=== PATIENT | female | born 1970 | race Caucasian/White ===

== ENCOUNTER 2020-12-10 10:36 | Outpatient (CLI) | payer OTHER, SELFPAY ==
--- NOTE | ~2020-12-10 | MR_ITS ---
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 Strong family history. TECHNIQUE: MRI of the breasts perform using standard protocol pre-and post IV contrast with the follo wing sequences: Axial T2 STIR, axial T1, axial vibrant T1 with fat suppression precontrast and multip hasic postcontrast. COMPARISON: No prior studies for comparison. FINDINGS: RIGHT BREAST: There are no abnormalities on the precontrast sequences. There is mild background paren chymal enhancement. No enhancing lesions following contrast administration. There are clumped segmen alvin nonmass-like enhancement in the lower outer quadrant of the right breast. In the lower outer quad rant of the right breast at 7:00 there is an 8 x 4 x 1.3 cm mass with rapid washout enhancement and c entral fat, most likely benign intramammary lymph node.. There are enlarged right axillary lymph node s some of which appear to have lost normal fatty hilum. The largest lymph node measures 2.6 cm maximu m dimension. LEFT BREAST: No signal abnormalities on precontrast sequences. There is minimal, mild, moderate, mar ked background parenchymal enhancement. There is linear nonmass-like enhancement in the lower central aspect of the left breast. There are multiple left axillary lymph nodes which are increased in numbe r although not definitely size. IMPRESSION: 1: Right breast: Clumped segmental nonmass-like enhancement lower outer quadrant of the right breast . Adjacent 1.3 cm mass at 7:00, most likely benign lymph node. Enlarged right axillary lymph nodes me asuring up to 2.6 cm. 2: Left breast: Linear nonmass-like enhancement inferior aspect of the left breast. Pathologically i ncreased number of left axillary lymph nodes. BI-RADS CATEGORY 0 - INCOMPLETE STUDY, NEED ADDITIONAL IMAGING EVALUATION. RECOMMENDATION: Correlation with diagnostic bilateral mammogram and breast ultrasound recommended. Reviewed, dictated and finalized at location A. IMPRESSION: 1: Right breast: Clumped segmental nonmass-like enhancement lower outer quadra nt of the right breast. Adjacent 1.3 cm mass at 7:00, most likely benign lymph node. Enlarged right axillary lymph nodes measuring up to 2.6 cm. 2: Left breast: Linear nonmass-like enhancement inferior aspect of the left br east. Pathologically increased number of left axillary lymph nodes. BI-RADS CATEGORY 0 - INCOMPLETE STUDY, NEED ADDITIONAL IMAGING EVALUATION. RECOMMENDATION: Correlation with diagnostic bilateral mammogram and breast ultr asound recommended.
[2020-12-10 11:08] LABS: Estimated Glomerular Filt Rate > 60
== END 2020-12-10 10:37 | disposition home or self-care (01) ==
PROVIDERS: PCP Internal Medicine
DX: Z15.01 Genetic susceptibility to malignant neoplasm of breast (principal); Z80.3 Family history of malignant neoplasm of breast; R92.2 Inconclusive mammogram
CPT/HCPCS: 77049; A9577; C8908

== ENCOUNTER 2020-12-13 13:53 | Outpatient (CLI) | payer OTHER, SELFPAY ==
[2020-12-13 16:40] LABS: Hematocrit 39.9 % (35.0-49.0); Mean Corpuscular HGB Conc 32.6 g/dL (32.0-36.0); Mean Corpuscular Hemoglobin 29.6 pg (27.0-31.0); Mean Corpuscular Volume 90.9 fL (78.0-102.0); Mean Platelet Volume 9.3 fl (9.2-11.8); Platelet Count Result 325 K/mm3 (150-420); Red Blood Count 4.39 M/mm3 (4.20-5.40); Red Cell Distribution Width 12.5 % (11.6-14.4)
[2020-12-13 16:50] LABS: Monoscreen Negative (Negative); Negative Monotest Control Negative (Negative); Positive Monotest Control Positive (Positive)
[2020-12-13 17:03] LABS: Band Neutrophils Percent 0 % (0-6); Basophils Percent Manual 0 % (0-1); Eosinophils Absolute Manual 0.56 K/mm3 (0.02-0.5); Eosinophils Percent Manual 4 % (1-6); Lymphocytes Absolute Manual 3.78 K/mm3 (1.1-4.5); Lymphocytes Percent Manual 27 % (18-44); Monocytes Absolute Manual 1.26 K/mm3 (0.1-0.90); Monocytes Percent Manual 9 % (3-9); Neutrophils Percent Manual 60 % (46-73); Total Cells Counted 100
[2020-12-13 17:04] LABS: Atypical Lymphocytes Present; Platelet Estimate Adequate (Adequate)
[2020-12-13 17:16] LABS: Alanine Aminotransferase 22 U/L (14-59); Albumin Level 3.5 g/dL (3.4-5.0); Alkaline Phosphatase 85 U/L (46-116); Anion Gap 8 mmol/L (8-16); Aspartate Amino Transferase 15 U/L (15-37); Bilirubin,Total 0.4 mg/dL (0.00-1.00); Blood Urea Nitrogen 13 mg/dL (7-18); Calcium 9.2 mg/dL (8.5-10.1); Carbon Dioxide 31 mmol/L (21-32); Chloride 100 mmol/L (98-108); Estimated Glomerular Filt Rate > 60; Glucose 104 mg/dL (70-99); Osmolality Calculated 288 mOsm/kg (285-295); Potassium 4.1 mmol/L (3.5-5.1); SARS-CoV-2 RNA PCR Negative (Negative); Sodium 139 mmol/L (136-145); Total Protein 7.5 g/dL (6.4-8.2)
[2020-12-16 20:40] LABS: EBV Nuclear Ab Interpretation Past; EBV Virus Capsid Ag IgM Ab <36.00 U/mL (<36.00)
== END 2020-12-13 13:54 | disposition home or self-care (01) ==
PROVIDERS: PCP Internal Medicine; Visit Provider Nurse Practitioner Family
DX: J02.9 Acute pharyngitis, unspecified (principal); R50.9 Fever, unspecified; R22.1 Localized swelling, mass and lump, neck; Z20.822 Contact with and (suspected) exposure to COVID-19
CPT/HCPCS: 80053; 85025; 86308; 86664; 86665; 87880; C9803; U0003; U0005

== ENCOUNTER 2021-01-25 13:56 | Outpatient (CLI) | payer OTHER, SELFPAY ==
--- NOTE | ~2021-01-25 | MM_ITS ---
EXAMINATION: MM diagnostic dinora BI w bethel HISTORY: Genetic susceptibility to cancer TECHNIQUE: ML, MLO and craniocaudal 3-D tomosynthesis images of both breasts were performed and synth etic 2-D images were generated. Magnification views of right breast. CAD analysis was submitted and i nterpreted. COMPARISON: 12/10/2020 MR breast examination: (Right breast MR findings: Clumped segmental nonmass-like enhancement was noted in the lower outer quadrant of the right breast. Lower outer quadrant1.3 cm mass at 7:00, reported as most likely a benign lymph node Right axillary 2.6 cm lymph node Left breast MR findings: Linear nonmass-like enhancement inferior aspect of left breast Pathologically increased number of left axillary lymph nodes) FINDINGS: No suspicious mass, sebaceous calcification, architectural distortion, skin thickening or r etraction of either breast is evident. Considering the genetic susceptibility issue, the heterogeneously dense stroma which may obscure mass es and the MR breast findings, bilateral complete ultrasound examination was performed. IMPRESSION: 1. Incomplete examination 2. Bilateral complete breast ultrasound examination is recommended. BI-RADS Category 0: Incomplete: Needs additional imaging evaluation. Reviewed, dictated and finalized at location A.
== END 2021-01-25 13:57 | disposition home or self-care (01) ==
LOC: ANHIMG 14:02
PROVIDERS: PCP Internal Medicine
DX: R92.8 Other abnormal and inconclusive findings on diagnostic imaging of breast (principal)
CPT/HCPCS: 77062; 77066; G0279

== ENCOUNTER 2021-01-27 14:21 | Outpatient (CLI) | payer OTHER, SELFPAY ==
--- NOTE | ~2021-01-27 | US_ITS ---
US breast BI complete DATE: 01/27/2021 15:16 INDICATION: Genetic susceptibility to breast cancer. 12/10/2020 MRI breast findings. 01/25/2021 diagnostic mammogram showing heterogeneously dense mammographic stroma, which may obscure m asses TECHNIQUE: Complete bilateral breast ultrasound examination was performed. COMPARISON: 01/25/2021 bilateral diagnostic mammogram 12/10/2020 MRI breast examination FINDINGS: Right breast: 12:00 4 cm from nipple: 2.8 x 5.2 mm septated cyst or clustered cysts, with through transmission, latoya ign 11:00 5 cm from nipple: 3.9 mm cyst with through transmission and posterior enhancement, benign 9:00 7 cm from nipple: Parallel circumscribed 1.5 x 2.8 x 5.3 mm lesion without internal vascularity or suspicious shadowing, benign Prominent subareolar ducts Right axillary lymph nodes are noted, with relatively uniform cortex thickness and homogeneous echote xture, measuring up to 6 x 14 mm. Left breast: 12:00 4 cm from nipple: 3 x 4 mm parallel circumscribed hypoechoic lesion with through transmission, benign in appearance 12:00 2 cm from nipple: 3.2 x 3.7 x 4.5 mm parallel circumscribed hypoechoic lesion with through tony smission, benign in appearance 3:00 5 cm from nipple: Adjacent 3 mm and 3.5 mm hypoechoic lesions without internal vascularity or chacko spicious shadowing 6:00 5 cm from nipple: 3.1 x 3.4 mm hypoechoic lesion with through transmission posterior enhancement , benign in appearance Mild prominence of subareolar ducts Multiple left axillary lymph nodes, measuring up to 7.5 x 20 mm maximal dimension IMPRESSION: BI-RADS Category 2: Benign findings Recommendation: Routine mammographic screening and any additional MR and ultrasound monitoring as pao ropriate given the patient's history of genetic susceptibility Reviewed, dictated and finalized at Location A. Reviewed, dictated and finalized at location A. IMPRESSION: BI-RADS Category 2: Benign findings Recommendation: Routine mammographic screening and any additional MR and ultras ound monitoring as appropriate given the patient's history of genetic susceptib ility
== END 2021-01-27 14:22 | disposition home or self-care (01) ==
LOC: CHSIMG 14:27
PROVIDERS: PCP Internal Medicine
DX: R92.8 Other abnormal and inconclusive findings on diagnostic imaging of breast (principal)
CPT/HCPCS: 76641

== ENCOUNTER 2021-12-20 11:46 | Outpatient (CLI) | payer OTHER, SELFPAY ==
--- NOTE | ~2021-12-20 | MMUS_ITS ---
EXAMINATION: MM diagnostic dinora RT w bethel, US breast RT limited HISTORY: Palpable lump at the 6:00 location of the right breast. TECHNIQUE: Craniocaudal, mediolateral, and mediolateral oblique 3-D tomosynthesis images of the right breast were performed and synthetic 2-D images were generated. CAD analysis was submitted and interp reted. High resolution limited right breast ultrasound was performed. COMPARISON: 01/25/2021 BREAST PARENCHYMAL COMPOSITION: The breasts are heterogeneously dense, which may obscure small masses . FINDINGS: MAMMOGRAPHIC FINDINGS: There is no suspicious mass, calcification, or architectural distortion to suggest malignancy. There has been no suspicious interval change. No mammographic correlate is identified for the reported pal pable abnormality of concern. ULTRASOUND: There is no evidence of focal abnormal solid or cystic mass in the vicinity of the reported palpable abnormality of concern. IMPRESSION: 1. No specific mammographic or sonographic correlate is identified for the reported palpable abnormal ity of concern. Further evaluation at this time should be based on clinical assessment. Continued fol low-up physical examination is recommended. 2. Recommend routine screening mammography. Of note, the left breast is due for screening next month. BI-RADS Category 1: Negative Reviewed, dictated and finalized at location A. IMPRESSION: 1. No specific mammographic or sonographic correlate is identified for the repo rted palpable abnormality of concern. Further evaluation at this time should be based on clinical assessment. Continued follow-up physical examination is martha mmended. 2. Recommend routine screening mammography. Of note, the left breast is due for screening next month. BI-RADS Category 1: Negative
== END 2021-12-20 11:47 | disposition home or self-care (01) ==
PROVIDERS: PCP Internal Medicine
DX: N63.10 Unspecified lump in the right breast, unspecified quadrant (principal)
CPT/HCPCS: 76642; 77061; 77065; G0279

== ENCOUNTER 2022-03-22 09:26 | Outpatient (CLI) | payer OTHER, SELFPAY ==
--- NOTE | ~2022-03-22 | MM_ITS ---
EXAMINATION: MM screening dinora BI w bethel HISTORY: Screening mammogram TECHNIQUE: Craniocaudal and mediolateral oblique 3-D tomosynthesis images were obtained and synthetic 2-D images were generated. CAD analysis was submitted and interpreted. COMPARISON: 12/20/2021 diagnostic right mammogram and limited right breast ultrasound 01/23/2021 bilateral complete breast ultrasound examination 01/25/2021 bilateral diagnostic mammography 12/10/2020 MRI breast examination BREAST PARENCHYMAL COMPOSITION: The breasts are heterogeneously dense, which may obscure small masses . FINDINGS: Small chronic cluster of benign-appearing grouped microcalcifications in the upper central right breast. There is no evidence of suspicious mass, calcification, or architectural distortion to suggest malignancy in either breast. There has been no suspicious interval change. IMPRESSION: 1. No mammographic evidence of malignancy. 2. Recommend routine screening mammography in one year. BI-RADS Category 2: Benign finding(s). Reviewed, dictated and finalized at location A.
== END 2022-03-22 09:27 | disposition home or self-care (01) ==
PROVIDERS: PCP Internal Medicine
DX: Z12.31 Encounter for screening mammogram for malignant neoplasm of breast (principal)
CPT/HCPCS: 77063; 77067

== ENCOUNTER 2022-10-30 13:59 | Outpatient (CLI) | payer OTHER, SELFPAY ==
[2022-10-30 14:41] LABS: Strep Group A RT-PCR DETECTED (Negative)
== END 2022-10-30 14:00 | disposition home or self-care (01) ==
PROVIDERS: PCP Internal Medicine; Visit Provider Internal Medicine
DX: J02.0 Streptococcal pharyngitis (principal)
CPT/HCPCS: 87651

== ENCOUNTER 2022-11-02 08:39 | Outpatient (CLI) | payer OTHER, SELFPAY ==
--- NOTE | ~2022-11-02 | MR_ITS ---
MR breast BI wo/w con 11/03/2022 10:23 CDT INDICATION: Family history of breast cancer. TECHNIQUE: MRI of the breasts perform using standard protocol pre-and post IV contrast with the follo wing sequences: Axial T2 STIR, axial T1, axial vibrant T1 with fat suppression precontrast and multip hasic postcontrast. 11 cc IV MultiHance administered. COMPARISON: MRI breast dated 12/10/2020 as well as mammograms and ultrasounds dating back to 1 FINDINGS: There are no abnormalities on the precontrast sequences. There is marked background parench ymal enhancement and a diffuse stippled appearance.. No enhancing lesions following contrast adminis tration. No areas of enhancement meeting threshold criteria on CAD analysis. No evidence of signal abnormalities in the axillary or internal mammary node distributions. LEFT BREAST: No signal abnormalities on precontrast sequences. There is marked background parenchyma l enhancement and a diffuse stippled appearance. No enhancing lesions following contrast administrat ion. No areas of enhancement meeting threshold criteria on CAD analysis. No evidence of signal abn ormalities in the axillary or internal mammary node distributions.] IMPRESSION: 1: Right breast: Negative. No evidence of malignancy. BI-RADS category 1. Recommend annual mammo graphy follow-up. 2: Left breast: Negative. No evidence of malignancy. BI-RADS category 1. Recommend annual mammogr aphy follow-up. Follow-up MRI may be useful for supplementing mammographic evaluation as clinically indicated. Reviewed, dictated and finalized at location A. IMPRESSION: 1: Right breast: Negative. No evidence of malignancy. BI-RADS category 1. Recommend annual mammography follow-up. 2: Left breast: Negative. No evidence of malignancy. BI-RADS category 1. Re commend annual mammography follow-up. Follow-up MRI may be useful for supplementing mammographic evaluation as clinic ally indicated.
== END 2022-11-02 08:40 | disposition home or self-care (01) ==
PROVIDERS: PCP Internal Medicine
DX: Z80.3 Family history of malignant neoplasm of breast (principal)
CPT/HCPCS: 77049; A9577; C8908

== ENCOUNTER 2023-06-27 16:38 | Outpatient (CLI) | payer OTHER, SELFPAY ==
--- NOTE | ~2023-06-27 | MM_ITS ---
EXAMINATION: MM screening dinora BI w bethel HISTORY: Screening mammogram TECHNIQUE: Craniocaudal and mediolateral oblique 3-D tomosynthesis images were obtained and synthetic 2-D images were generated. CAD analysis was submitted and interpreted. COMPARISON: 11/02/2022 MR breast, reported negative 03/22/2022 bilateral screening mammogram 12/20/2021 diagnostic right mammogram and limited right breast ultrasound 01/23/2021 bilateral complete breast ultrasound examination 01/25/2021 bilateral diagnostic mammogram BREAST PARENCHYMAL COMPOSITION: The breasts are heterogeneously dense, which may obscure small masses . FINDINGS: There is asymmetry in the mid to posterior lower left breast MLO view. Diagnostic left mamm ogram is recommended, with ultrasound if required. Otherwise no suspicious mass, architectural distortion, malignant calcification, skin thickening or r etraction or significant change of either breast is detected. IMPRESSION: 1. Left mammographic asymmetry 2. Diagnostic left mammogram is recommended, with ultrasound if required BI-RADS Category 0: Incomplete: Needs additional imaging evaluation. Reviewed, dictated and finalized at location A. 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
== END 2023-06-27 16:39 | disposition home or self-care (01) ==
LOC: ANHIMG 16:50
PROVIDERS: PCP Internal Medicine
DX: Z12.31 Encounter for screening mammogram for malignant neoplasm of breast (principal); R92.8 Other abnormal and inconclusive findings on diagnostic imaging of breast
CPT/HCPCS: 77063; 77067

== ENCOUNTER 2023-07-23 12:16 | Outpatient (CLI) | payer OTHER, SELFPAY ==
--- NOTE | ~2023-07-23 | MMUS_ITS ---
EXAMINATION: MM diagnostic dinora LT w bethel, US breast LT limited HISTORY: Mammographic asymmetry in the mid to posterior lower left breast on screening MLO view of TECHNIQUE: Additional 3-D tomosynthesis images of left breast were performed and synthetic 2-D images were generated. CAD analysis was submitted and interpreted. High resolution lower outer quadrant lef t breast ultrasound was performed. COMPARISON: 06/27/2020 bilateral screening mammogram FINDINGS: MAMMOGRAPHIC FINDINGS: No reproducible mass or architectural distortion, malignant calcification, skin thickening or retract ion is detected. ULTRASOUND: No suspicious mass or shadowing. No other significant sonographic abnormality of the lower outer quad rant of the left breast is noted. IMPRESSION: 1. No mammographic or sonographic evidence of malignancy 2. Routine annual mammographic screening is recommended. BI-RADS Category 1: Negative Reviewed, dictated and finalized at location A. 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 No mammographic or sonographic evidence of malignancy 2. Routine annual mammographic screening is recommended. BI-RADS Category 1: Negative
== END 2023-07-23 12:17 | disposition home or self-care (01) ==
LOC: ANHIMG 12:18
PROVIDERS: PCP Internal Medicine
DX: R92.8 Other abnormal and inconclusive findings on diagnostic imaging of breast (principal)
CPT/HCPCS: 76642; 77061; 77065; G0279

== ENCOUNTER 2023-08-13 03:03 | Day surgery (SDC) | payer OTHER, SELFPAY ==
[2023-07-16 14:47] VITALS: BMI 22.6
--- NOTE | 2023-08-10 10:11 | SUR.PREOP ---
Patient called regarding upcoming procedure. Reviewed preop instructions, appointment times, and procedure prep.
[2023-08-13 09:13] VITALS: BP 130/87; PULSE 106; RESP 18; TEMP 36.1; O2SAT 100
[2023-08-13] MEDS: LACTATED RINGERS 1,000 ML 150 ML IV CONT (09:27)
--- NOTE | 2023-08-13 09:35 | WPDANESEPPF ---
Anes - Initial Pre Proc Eval Procedure: Operation Date: 08/13/23 10:00 Proposed Procedures p Screening Colonoscopy - Patric Douglass MD Date/Time: 08/13/23 09:35 Surgeon: Patric Douglass MD Pre Op Diagnosis: neoplasm screening Patient Data Age: 52 Gender: F Height: 1.63 m Weight: 59.5 kg Last Vital Signs Temp 97 F L 08/13/23 09:13 Pulse 106 H 08/13/23 09:13 Resp 18 08/13/23 09:13 BP 130/87 08/13/23 09:13 Pulse Ox 100 08/13/23 09:13 O2 Del Method Room Air 08/13/23 09:13 Allergies Allergy/AdvReac Type Severity Reaction Status Date / Time No Known Allergies Allergy Unknown Verified 08/13/23 09:12 Home Medications Medication Instructions Recorded Confirmed Type rosuvastatin 5 mg tablet 5 mg PO DAILY 07/16/23 08/13/23 History Patient hx anesthesia problems: none Family hx anesthesia problems: none Results Review: All pre-operative results and documents have been reviewed as part of the pre-operative evaluation. [facility] Social History Social History Substance use type: does not use Anes - Eval Final PreProcedure Day of Procedure 08/13/23 09:35 Patient weight: normal Heart: regular rate and rhythm Lungs: clear to auscultation Airway: Mallampati scale class II Neurological: alert and oriented Last oral intake: >/= 8 hours ASA classification: II Emergent: no Anesthetic plan: proceed Anesthesia type and monitoring: general GIVS and standard monitoring Results Review: All pre-operative results and documents have been reviewed as part of the pre-operative evaluation. Informed Consent: The patient's anesthetic plan and its attendant risks and benefits were discussed with the patient/family/POA. Questions were solicited and answers provided to the satisfaction of the patient/family/POA.
--- NOTE | 2023-08-13 09:55 | PM.HPGS ---
History of Present Illness History of Present Illness Consent: Risks, benefits, and alternatives have been discussed and questions answered. Patient agrees to proceed with procedure. Chief complaint: neoplasm screening Narrative: Clementina Phelan is a 52 year old female here for first screening colonoscopy Review of Systems Constitutional: Constitutional: Denies headache(s) and Denies weakness Eyes: Eyes: Denies blurry vision ENT: Reports Normal hearing present, Denies headache(s) and Denies neck pain Cardiovascular: Cardiovascular: Denies chest pain and Denies dyspnea Respiratory: Respiratory: Denies dyspnea Gastrointestinal: Gastrointestinal: Reports no additional gastrointestinal complaints Genitourinary: Genitourinary: Denies dysuria Musculoskeletal: Musculoskeletal: Denies neck pain Integumentary/Breasts: Skin/Breast: Denies dry skin Neurologic: Reports Normal hearing present, Denies headache(s) and Denies weakness Psychiatric: Psychiatric: Denies anxiety Endocrine: Endocrine: Denies change in body appearance Hematologic/Lymphatic: Hematologic/Lymphatic: Denies easy bleeding Allergic/Immunologic: Allergic/Immunologic: Denies urticaria PMFSH Past Medical History Medical History (Updated 08/13/23 @ 09:56 by Patric Douglass MD) Colon cancer screening Social History Social History Substance use type: does not use Meds Home Medications and Allergies Home Medications Medication Instructions Recorded Confirmed Type rosuvastatin 5 mg tablet 5 mg PO DAILY 07/16/23 08/13/23 History Allergies Allergy/AdvReac Type Severity Reaction Status Date / Time No Known Allergies Allergy Unknown Verified 08/13/23 09:12 Vital Signs Vital Signs - 24 hr 08/13/23 09:13 Temperature 97 F L Pulse Rate 106 H Respiratory Rate 18 Blood Pressure 130/87 Pulse Oximetry 100 Oxygen Delivery Room Air Exam Const: General: comfortable and no acute distress HENMT: Face/Nose/Sinus: Normal nares present Eyes: General: appearance normal, both eyes and all related structures Neck: Neck: no JVD Resp: Auscultation: clear to auscultation bilaterally Cardio: Rate: regular rate Rhythm: regular rhythm GI: Inspection: non-distended GI Palp: Yes Soft to palpation Skin: General skin exam: normal color Neuro: General: gait normal Speech: normal speech Extrem: General: normal to inspection Psych: Mental Status: mental status grossly normal Assessment and Plan Assessment and plan (1) Colon cancer screening: Code(s): Z12.11 - Encounter for screening for malignant neoplasm of colon Status: Acute Assessment and Plan: colonoscopy
[2023-08-13 10:15] VITALS: BP 104/65; PULSE 73; RESP 18; O2SAT 99
[2023-08-13 10:25] VITALS: BP 123/82; PULSE 77; RESP 18; O2SAT 100
[2023-08-13 10:35] VITALS: BP 119/80; PULSE 81; RESP 18; O2SAT 100
== END 2023-08-13 10:45 | disposition home or self-care (01) ==
PROVIDERS: PCP Internal Medicine; Visit Provider Internal Medicine Gastroenterology
PROC: 0DJD8ZZ Inspection of Lower Intestinal Tract, Via Natural or Artificial Opening Endoscopic (ICD-10-PCS; CPT 45378; principal; 2023-08-13 10:00)
DX: Z12.11 Encounter for screening for malignant neoplasm of colon (principal); D12.2 Benign neoplasm of ascending colon; D12.5 Benign neoplasm of sigmoid colon; K64.8 Other hemorrhoids; K57.30 Diverticulosis of large intestine without perforation or abscess without bleeding
CPT/HCPCS: 45385; 88305; J2704; J7120

== ENCOUNTER 2024-02-08 09:53 | Outpatient (CLI) | payer OTHER, SELFPAY ==
--- NOTE | ~2024-02-08 | MR_ITS ---
EXAMINATION: MR breast BI wo/w con INDICATION: High-risk using, genetic susceptibility of cancer TECHNIQUE: Axial VIBRANT pre and dynamic post contrast, Sagittal VIBRANT post contrast, Axial T2 STIR ASSET COMPARISON: 11/02/2022 CONTRAST: Multihance, 12 cc BREAST COMPOSITION: Extremely dense fibroglandular tissue FINDINGS: RIGHT BREAST: There is marked background parenchymal enhancement. No abnormal enhancement is present after contrast administration. No pathologically enlarged axillary or internal mammary lymph nodes ar e identified. LEFT BREAST: There is marked background parenchymal enhancement. No abnormal enhancement is present a fter contrast administration. No pathologically enlarged axillary or internal mammary lymph nodes are identified. IMPRESSION: No evidence for malignancy. BI-RADS Category 1: Negative Reviewed, dictated and finalized at location .
== END 2024-02-08 09:54 | disposition home or self-care (01) ==
PROVIDERS: PCP Internal Medicine
DX: Z15.01 Genetic susceptibility to malignant neoplasm of breast (principal)
CPT/HCPCS: 77049; A9577; C8908

== ENCOUNTER 2024-09-11 07:46 | Outpatient (CLI) | payer OTHER, SELFPAY ==
--- NOTE | ~2024-09-11 | MM_ITS ---
EXAMINATION: MM screening din[facility] BI w [facility] HISTORY: Screening TECHNIQUE: Craniocaudal and mediolateral oblique 3-D tomosynthesis images were obtained and synthetic 2-D images were generated. CAD analysis was submitted and interpreted. COMPARISON: Comparison to multiple prior studies sequentially, with oldest reviewed study dated 01/25. BREAST PARENCHYMAL COMPOSITION: Dense: The breasts are heterogeneously dense, which may obscure small masses FINDINGS: There is no evidence of suspicious mass, calcification, or architectural distortion to sugg est malignancy in either breast. There has been no suspicious interval change. IMPRESSION: 1. No mammographic evidence of malignancy. 2. Recommend routine screening mammography in one year. BI-RADS Category 1: Negative Reviewed, dictated and finalized at location B. [facility] HEL[facility]
--- OUTSIDE RECORDS SUMMARY | 2024-09-11 07:57 | XMS_ITS | Data Portability ---
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 Plan of Treatment Reminders Order Date Submit Date Provider Last Modified By Organization Details Last Modified Time Details Appointments None recorded. Lab None recorded. Referral None recorded. Procedures None recorded. Surgeries septoplast y (SURG) 2016 017 [facility] (Pat), [address] [place], [address], 7 15:46:54 Imaging tympanogra m 2018 019 [email or web address] In-House Results, For Internal Use Only, Do Not Delete/merge, [id number] 9 15:51:37 Medication Orders None recorded. Patient TargetsNo targets recorded. Patient Instructions Encounter Date Encounter Id Patient Instructions Last Modified By Organization Details Last Modified Time 08/15/2016 [id number] DISCUSSED SEPTOPLASTY--2 DAYS OF PACKING; DISCUSSED RISKS--BLEEDING; INFECTION; SEPTAL PERF; CHANGE IN SENSE OF SMELL; MAY NOT WORK TOTALLY FOR BREATHING; NO LIFTING OR BENDING X 10 DAYS AND WILL HAVE TO FOLLOW UP FOR NEXT SEVERAL MONTHS. DISCUSSED T&A WOULD HELP WITH THE SLEEP APNEA. PT WANTS TO HOLD ON THE T&A FOR NOW. MORTALITY AND MORBIDITY DISCUSSED IN FULL. josr Not available 08/30/2016 10:41:07 09/08/2016 [id number] KEEP NOSE WET WITH SALINE NASAL SPRAY. josr Not available 09/08/2016 12:00:15 NASAL HYGIENE DISCUSSED. NO LIFTING OR BENDING X 10 DAYS. INSTRUCTED HOW TO BLOW THE NOSE. DO NOT GO UP INTO NOSE. USE AFRIN X 3 DAYS ONLY. USE SALINE NASAL SPRAY FREQUENTLY. josr Not available 09/08/2016 11:59:55 09/22/2016 [id number] STOP THE AFRIN-WAS ONLY SUPPOSE TO BE USED FOR 3 DAYS ONLY . USE SALINE NASAL SPRAY BUT DO NOT PUT NOZZLE IN NOSE. NASAL HYGIENE DISCUSSED. RETURN IN 2 WEEKS. CONSIDER T&A IN THE FUTURE. josr Not available 09/22/2016 10:53:15 10/09/2016 [id number] Observe the tonsils for now call if she when she is ready to schedule surgery [email or web address] Not available 10/09/2016 12:40:06 discussed the nasal hygiene, discussed breathing throught the nose one side is a little tighter, discussed T&A observe for now [email or web address] Not available 10/09/2016 12:39:39 01/21/2019 [id number] AURAL HYGIENE DISCUSSED. EXPLAINED JAW HINGE PROBLEMS CAN MIMIC EAR COMPLAINTS. WATCH CLENCHING; NO GUM CHEWING; BITE GUARD AT HS. josr Not available 01/21/2019 15:38:05 Reason for Referral None Reported. Results Created Date Observation Date Name Description Value Unit Range Abnormal Flag Note LastModifiedBy Organization Detail LastModifiedTime 09/04/19 17 09/04/2016 CBC WBC 8.9 10 3.7-10 .6 Not Available [facility] (Lab) [address] [place], [address], 09/04/2016 14:04:18 09/04/1909/04/2016 CBC RBC 4.41 10 4.11-5 .26 Not Available [facility] (Lab) [address] [place], [address], 09/04/2016 14:04:18 09/04/19 17 09/04/2016 CBC HGB 13.3 g/dL 12.3-1 5.5 Not Available [facility] (Lab) [address] [place], [address], 09/04/2016 14:04:18 09/04/19 17 09/04/2016 CBC HCT 39.2 % 36.8-4 4.9 Not Available [facility] (Lab) [address] [place], [address], 09/04/2016 14:04:18 09/04/19 17 09/04/2016 CBC MCV 88.8 fL 78.0-1 00.0 Not Available [facility] (Lab) [address] [place] [address], [address], 09/04/2016 14:04:18 09/04/19 17 09/04/2016 CBC MCH 30.3 pg 27.0-3 1.0 Not Available [facility] (Lab) [address] [place] [address], [address], 09/04/2016 14:04:18 09/04/19 17 09/04/2016 CBC MCHC 34.1 g/dL 32.0-3 6.0 Not Available [facility] (Lab) [address] [place] [address], [address], 09/04/2016 14:04:18 09/04/19 17 09/04/2016 CBC RDW 13.1 % 11.5-1 6.0 Not Available [facility] (Lab) [address] [place] [address], [address], 09/04/2016 14:04:18 09/04/19 17 09/04/2016 CBC plt 297 10 150-45 0 Not Available [facility] (Lab) [address] [place] [address], [address], 09/04/2016 14:04:18 09/04/19 17 09/04/2016 CBC MPV 8.6 fL 6.0-9. 5 Not Available [facility] (Lab) [address] [place] [address], [address], 09/04/2016 14:04:18 09/04/19 17 09/04/2016 pregn juan diego test, urine urpreg NEGATI VE THE REFER ENCE RANGE FOR THIS TEST IS NEGAT GRETA Not Available [facility] (Lab) [address] [place], [address], 09/04/2016 14:54:44 09/04/19 17 09/04/2016 pregn juan diego test, urine upregiqc PASS PASS Not Available [facility] (Lab) [address] [place], [address], 09/04/2016 14:54:44 09/04/19 17 09/04/2016 PT/PT T, plasm a protime 9.90 secon ds 9.5-11 .2 Pleas e note new PT refer ence effec tive 02/16. Not Available [facility] (Lab) [address] [place], [address], 09/04/2016 14:56:45 09/04/19 17 09/04/2016 PT/PT T, plasm a INR 0.96 0.94-1 .05 -INR- INR recom tin d thera peuti c range :1.8- 2.8 for less inten se thera py. 2.3-3 .3 more inten se thera py. INR is valid for stabi lized oral antic oagul ant thera py. Refer ence Range for patie nts not on antic oagul ation thera py 0.88- 1.12 Not Available [facility] (Lab) [address] [place], [address], 09/04/2016 14:56:45 09/04/19 17 09/04/2016 PT/PT T, plasm a PTT 28.00 secon ds 23.5-2 8.9 Pleas e note new PTT refer ence effec tive 02/16. Not Available [facility] (Lab) [address] [place], [address], 09/04/2016 14:56:45 09/04/19 17 09/04/2016 urina lysis , dipst ick urine volume 12 mL Not Available [facility] (Lab) [address] [place], [address], 09/04/2016 14:57:47 09/04/19 17 09/04/2016 urina lysis , dipst ick color YELLOW yellow Not Available [facility] (Lab) [address] [place], [address], 09/04/2016 14:57:47 09/04/19 17 09/04/2016 urina lysis , dipst ick clarity CLEAR clear Not Available [facility] (Lab) [address] [place] [address], [address], 09/04/2016 14:57:47 09/04/19 17 09/04/2016 urina lysis , dipst ick source RANDOM Not Available [facility] (Lab) [address] [place], [address], 09/04/2016 14:57:47 09/04/19 17 09/04/2016 urina lysis , dipst ick sp grav 1.020 1.005- 1.030 Not Available [facility] (Lab) [address] [place], [address], 09/04/2016 14:57:47 09/04/19 17 09/04/2016 urina lysis , dipst ick pH 6 5.0-8. 0 Not Available [facility] (Lab) [address] [place] [address], [address], 09/04/2016 14:57:47 09/04/19 17 09/04/2016 urina lysis , dipst ick garrett NEGATI VE uL negati ve Not Available [facility] (Lab) [address] [place], [address], 09/04/2016 14:57:47 09/04/19 17 09/04/2016 urina lysis , dipst ick nit NEGATI VE negati ve Not Available [facility] (Lab) [address] [place], [address], 09/04/2016 14:57:47 09/04/19 17 09/04/2016 urina lysis , dipst ick urprot NEGATI VE mg/dL negati ve Not Available [facility] (Lab) [address] [place], [address], 09/04/2016 14:57:47 09/04/19 17 09/04/2016 urina lysis , dipst ick glucose NORMAL mg/dL negati ve Not Available [facility] (Lab) [address] [place], [address], 09/04/2016 14:57:47 09/04/19 17 09/04/2016 urina lysis , dipst ick urket NEGATI VE mg/dL negati ve Not Available [facility] (Lab) [address] [place], [address], 09/04/2016 14:57:47 09/04/19 17 09/04/2016 urina lysis , dipst ick UBG NORMAL mg/dL Not Available [facility] (Lab) [address] [place], [address], 09/04/2016 14:57:47 09/04/19 17 09/04/2016 urina lysis , dipst ick urbili NEGATI VE mg/dL negati ve Not Available [facility] (Lab) [address] [place], [address], 09/04/2016 14:57:47 09/04/19 17 09/04/2016 urina lysis , dipst ick bld NEGATI VE uL negati ve Not Available [facility] (Lab) [address] [place], [address], 09/04/2016 14:57:47 01/22/20 19 01/21/2019 virgen seth Right Type A Normal Not Available In-House Results For Internal Use Only, Do Not Delete/merge, [id number] 01/21/2019 15:41:07 01/22/2001/21/2019 virgen seth Left Type A Normal Not Available In-House Results For Internal Use Only, Do Not Delete/merge, [id number] 01/21/2019 15:41:07 01/23/2001/21/2019 virgen seth No observ ation record ed. BARCODE In-House Results For Internal Use Only, Do Not Delete/merge, [id number] 01/22/2019 11:12:38 Result Notes None recorded. 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 Medical Equipment None Reported. Allergies No known drug allergies Medications Name Sig Start Date Stop Date Status Note LastModified by Organization Details LastModified Time amoxicillin 500 mg capsule TK 1 C PO TID FOR 10 DAYS active Not Available Not Available No t Available prednisone 10 mg tablet active Not Available Not Available Not Available azithromyci n 250 mg tablet active Not Available Not Available Not Available fluconazole 150 mg tablet TK 1 T PO NOW. MAY REPEAT IN 1 WK IF SYMPTOMS PERSIST active Not Available Not Available No t Available prednisone 20 mg tablet TK 2 TS PO QD FOR 5 DAYS active Not Available Not Available No t Available metronidazo le 500 mg tablet TK 1 T PO BID FOR 7 DAYS active Not Available Not Available No t Available phentermine 37.5 mg tablet TK 1 T PO QD active Not Available Not Available No t Available acetaminoph en 300 mg-codeine 30 mg tablet TK 1-2 TS PO Q 4-6 H PRN P active Not Available Not Available No t Available tretinoin 0.05 % topical cream LAUREN TO FACE QHS AFTER CLEANSING active Not Available Not Available No t Available ciprofloxac in 500 mg tablet TK 1 T PO Q 12 H FOR 5 DAYS active Not Available Not Available No t Available sulfamethox azole 800 mg-trimetho prim 160 mg tablet active Not Available Not Available Not Available ketorolac 0.5 % eye drops active Not Available Not Available Not Available doxycycline monohydrate 50 mg capsule TK 1 C PO D active Not Available Not Available No t Available amoxicillin 875 mg tablet TK 1 T PO Q 12 H FOR 10 DAYS active Not Available Not Available No t Available doxycycline monohydrate 100 mg capsule TK ONE C PO D active Not Available Not Available No t Available ranitidine 150 mg tablet TK 1 T PO BID UTD active Not Available Not Available No t Available buspirone 10 mg tablet TK 1/2 TO 1 T PO BID PRF SEVERE ANXIETY active Not Available Not Available No t Available fluorometho lone 0.1 % eye drops,suspe nsion INSTILL 1 DROP INTO RIGHT EYE FOUR TIMES DAILY FOR 1 MONTH active Not Available Not Available No t Available gabapentin 300 mg capsule active Not Available Not Available Not Available methylpredn isolone 4 mg tablets in a dose pack TK UTD ON PACK active Not Available Not Available No t Available oxybutynin chloride 5 mg tablet TK 1 T PO 2 TO 3 XD active Not Available Not Available No t Available fluticasone propionate 50 mcg/actuati on nasal spray,suspe nsion SHAKE LQ AND U 1 SPR IEN QD active Not Available Not Available No t Available sertraline 50 mg tablet TK 1 T PO QD active Not Available Not Available No t Available amoxicillin 875 mg-potassiu m clavulanate 125 mg tablet TK 1 T PO Q 12 H FOR 10 DAYS active Not Available Not Available No t Available tobramycin 0.3 %-dexametha sone 0.1 % eye drops,suspe nsion INSTILL 1 DROP IN OU QID 07/19 completed Not Available Not Available Not Available medroxyprog esterone 150 mg/mL intramuscul ar syringe INJECT 1 SYRINGE IM Q 3 MONTHS 07/19 completed Not Available Not Available Not Available moxifloxaci n 0.5 % eye drops INT 1 GTT INTO OD QID FOR 5 DAYS active Not Available Not Available No t Available rosuvastati n 5 mg tablet TK 1 T PO QD active Not Available Not Available No t Available rosuvastati n 10 mg tablet TK 1 T PO QD active Not Available Not Available No t Available nitrofurant oin monohydrate /macrocryst als 100 mg capsule TK 1 C PO Q 12 H FOR 7 DAYS active Not Available Not Available No t Available metronidazo le 1 % topical gel LAUREN TO FACE AFTER CLEANSING QAM active Not Available Not Available No t Available metronidazo le active Not Available Not Available Not Available Se-Prince 19 (with docusate) 29 mg iron-1 mg-25 mg tablet TK 1 T PO D 07/19 completed Not Available Not Available Not Available Flucelvax Quad 6628-7530 (PF) 60 mcg (15 mcg x 4)/0.5 mL IM syringe ADM 0.5ML IM UTD active Not Available Not Available No t Available Fluarix Quad (PF) 60 mcg (15 mcg x 4)/0.5 mL IM syringe ADM 0.5ML IM UTD active Not Available Not Available No t Available Afluria Qd (36 mos up)(PF)60 mcg (15 mcg x4)/0.5 mL IM syringe ADM 0.5ML IM UTD active Not Available Not Available No t Available Vitals Date Recorded Body height Heart rate Body weight Body mass index (BMI) Systolic blood pressure Diastolic blood pressure Provider Name and Address Organization Details Last Updated DateTime 7 160.02 cm 74 /min 20837.7 8 g 28.3 kg/m2 129 mm[Hg] 84 mm[Hg] Denise Grimaldo CMA [facility] 7 10:23:11 Date Recorded Body height Heart rate Systolic blood pressure Diastolic blood pressure Provider Name and Address Organization Details Last Updated DateTime 09/08/2016 160.02 cm 72 /min 140 mm[Hg] 87 mm[Hg] Denise Grimaldo CMA [facility] 09/08/2016 11:29:26 Date Recorded Body height Systolic blood pressure Diastolic blood pressure Provider Name and Address Organization Details Last Updated DateTime 09/22/2016 160.02 cm 115 mm[Hg] 76 mm[Hg] Denise Grimaldo CMA [facility] 09/22/2016 10:21:49 Date Recorded Body weight Body mass index (BMI) Body height Heart rate Systolic blood pressure Diastolic blood pressure Provider Name and Address Organization Details Last Updated DateTime 9 35067.8 9 g 30.5 kg/m2 160.02 cm 99 /min 123 mm[Hg] 84 mm[Hg] Denise Grimaldo CMA [facility] 9 15:00:54 Social History Question Answer Notes LastModified by Organizat ion Details LastModified Time Tobacco Smoking Status Never Smoker Denise Grimaldo CMA [facility] 07/19/2016 12:02:52 What Is Your Level Of Alcohol Consumption? None [email or web address] Information not available 07/19/2016 How Much Tobacco Do You Chew? None [email or web address] Information not available 07/19/2016 Which Illicit Or Recreational Drugs Have You Used? 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 No [email or web address] Information not available 07/19/2016 How Many Years Have You Smoked Tobacco? 0 Information not available 07/19/2016 Sex: Unknown Functional Status None recorded. Mental Status None recorded. Family History Relationship Description Onset Age of this Age Resolved Age Notes LastModified by Organization Details LastModified Time Unspecified Relation Malignant tumor of breast [email or web address] Not available 2015 12:02:43 Medical History No medical history recorded. Gynecological HistoryNo gynecological history recorded. Obstetrics History GPAL:G 0 P 0 0 0 0 Past Encounters Encounter ID Performer Location Encounter Start Date Encounter Closed Date Diagnosis/Indication Diagnosis SNOMED-CT Code Diagnosis ICD10 Code Diagnosis Note [id number] [facility] [place] [facility] [address] [place] [address] 02/10/2014 15:14:03 02/10/2014 16:37:01 [id number] [facility] [place] [facility] [address] [place] [address] 06/02/2015 12:12:11 06/02/2015 13:03:02 [id number] Rohith Sutton [facility] [address] [place] [address] 04/13/2016 09:31:25 04/13/2016 10:28:08 [id number] Rohith Sutton MD [facility] [address] [place] [address] 05/25/2016 09:56:25 05/25/2016 10:49:33 [id number] MD NADIRA Malik Y [address] [address] 07/18/2016 11:00:30 07/18/2016 12:54:27 Sleep apnea 71992403 G47.30 Hypertroph y of tonsils 36446108 J35.1 Nasal obstruction 586695 000 J34.89 Gastroesop hageal reflux disease 182611305 K21.9 [id number] MD NADIRA Malik Y [address] [address] 08/15/2016 09:50:59 08/15/2016 11:01:54 Nasal obstruction 031747820 J34.89 Hypertroph y of tonsils 43780466 J35.1 Sleep apnea 09522911 G47 .30 [id number] MD NADIRA Malik Y [address] [address] 09/08/2016 11:08:38 09/08/2016 12:03:30 Nasal obstruction 031274500 J34.89 [id number] Spenser Naqvi MD [facility] [address] [facility] [address] [place] [address] 09/22/2016 09:52:58 09/22/2016 10:55:55 Nasal obstruction 315493260 J34.89 Hypertroph y of tonsils 51815890 J35.1 [id number] Spenser Naqvi MD [facility] [address] [facility] [address] [place] [address] 10/09/2016 11:45:48 10/09/2016 12:42:37 Nasal obstruction 606973909 J34.89 Hypertroph y of tonsils 22012537 J35.1 [id number] MD TOM Gaytan [place] [facility] [address] [place] [address] 10/24/2016 09:33:28 10/24/2016 11:27:21 [id number] MD TOM Gaytan [place] [facility] [address] [place] [address] 05/04/2017 10:25:15 05/04/2017 11:08:35 [id number] MD TOM Gaytan [place] [facility] [address] [place] [address] 06/08/2017 10:58:52 06/08/2017 12:37:22 [id number] MD TOM Gaytan [place] [facility] [address] [place] [address] 07/09/2017 10:50:54 07/09/2017 11:25:17 [id number] MD TOM Gaytan [place] [facility] [address] [place] [address] 08/10/2017 11:05:54 08/10/2017 11:39:23 [id number] MD TOM Gaytan [place] [facility] [address] [place] [address] 08/19/2018 09:32:38 08/19/2018 10:21:46 [id number] MD TOM Gaytan [place] [facility] [address] [place] [address] 12/10/2018 11:02:44 12/10/2018 12:47:46 [id number] MD FADI GaytanSOU ASTRID [place] [facility] [address] [place] [address] 12/24/2018 15:08:03 12/24/2018 15:26:36 [id number] Spenser Naqvi MD [facility] [address] [facility], [address] [place] [address] 01/21/2019 14:38:41 01/21/2019 15:51:37 Hypertrophy of tonsils 40270421 J35.1 Tinnitus of left ear 346 1965488 106 H93.12 [id number] MD TOM Gaytan [place] [facility] [address] [place] [address] 06/18/2019 11:21:55 06/18/2019 11:53:56 [id number] MD TOM Gaytan [place] [facility] [address] [place] [address] 06/25/2019 14:24:12 06/25/2019 14:57:30 [id number] MD TOM Gatyan [place] [facility] [address] [place] [address] 07/01/2019 09:57:09 07/01/2019 10:55:17 [id number] MD TOM Gaytan [place] [facility] [address] [place] [address] 07/09/2019 10:50:38 07/09/2019 11:39:04 [id number] JD SANCHEZCACullenSOU ASTRID [place] [facility] [address] [place] [address] 07/28/2019 10:30:17 07/28/2019 11:37:04 [id number] MD TOM Gaytan [place] [facility] [address] [place] [address] 02/09/2020 13:47:46 02/09/2020 14:11:27 [id number] MD TOM Gaytan [place] [facility] [address] [place] [address] 03/26/2020 12:35:02 03/26/2020 13:14:25 Health Concerns Section Related Observation LastModified by Organization Detai ls LastModified Time None Recorded Concern Status LastModified by Organization Details LastModified Time None Recorded Advance Directives Directive None Recorded Payers Encounter Date Sequence Insurance Name Policy Number Policy Rice Covered Member ID Rice Member ID Guarantor Name 08/15/2016 1 [place] [employer] Clementina Tapan [id number] Clementina Neil Tapan 09/08/2016 1 [place] [facility] Clementina Tapan [id number] Clementina Neil Tapan 09/22/2016 1 [place] [employer] [place] [employer] Clementina Tapan [id number] Clementina Neil Tapan 10/09/2016 1 [place] [employer] [place] [employer] Clementina Tapan [id number] Clementina Neil Tapan 01/21/2019 1 [facility] (MEDICAID REPLACEMENT - HMO) [id number] Clementina Neil Tapan [id number] Clementina Neil Tapan OBGyn Episode No OBEpisode recorded.
--- OUTSIDE RECORDS SUMMARY | 2024-09-11 07:57 | XMS_ITS | Data Portability ---
Author Organization [facility] , [facility] Address [address] [place] [address] Assessment No assessment recorded. Plan of Treatment Reminders Order Date Submit Date Provider Last Modified By Organization Details Last Modified Time Details Appointments None recorded. Lab pap, LB 2022 023 Sponge [facility], [address] [place], [address], 3 11:53:59 HPV E6+E7 mRNA, qualitativ e PCR, cervix 2022 023 Revee Juan, [address] [place], [address], 3 14:57:19 HPV E6+E7 mRNA, qualitativ e PCR, cervix 2024 025 Revee Juan, [address] [place], [address], 5 10:00:11 pap, LB 2024 025 Sponge [facility], [address] [place], [address], 5 11:23:57 Referral breast evaluation referral 2021 022 [email or web address] Not available 13:14:22 Procedures None recorded. Surgeries None recorded. Imaging MAMMO, diagnostic , unilateral - 1cm firm nontender palpable lump on Right breast 3cm from nipple at 6 o'clock 2021 022 [facility], [address], [place], [address], 17:37:42 MRI, breast, bilateral, w/wo contrast 2021 022 [facility], [address], [place], [address], 17:37:42 MAMMO, screening, digital, bilateral 2021 022 [facility], [address], [place], [address], 10:22:46 MAMMO, screening, digital, bilateral [address], [address], [place], [address], 16:29:06 MAMMO, screening, digital, bilateral [address] (Mammography) , [address], [place], [address], 12:44:41 Medication Orders None recorded. Patient TargetsNo targets recorded. Patient Instructions Encounter Date Encounter Id Patient Instructions Last Modified By Organization Details Last Modified Time 12/12/2021 [id number] breast lumps: care instructions [email or web address] Not available 12/12/2021 12:27:58 abuse/domestic violence education [email or web address] Not available 12/12/2021 12:27:58 eating healthy foods: care instructions [email or web address] Not available 12/12/2021 12:27:58 general health care education [email or web address] Not available 12/12/2021 12:27:58 weight management education [email or web address] Not available 12/12/2021 12:27:58 05/01/2023 [id number] Patient Health Questionnaire-9* kbritsch Not available 05/02/2023 10:39:49 abuse/domestic violence education [email or web address] Not available 05/01/2023 14:41:57 eating healthy foods: care instructions [email or web address] Not available 05/01/2023 14:41:57 general health care education carina Not available 05/01/2023 14:41:57 weight management education carina Not available 05/01/2023 14:41:57 mammogram: about this test carina Not available 05/01/2023 14:41:57 08/28/2024 [id number] learning about depression screening Not available 08/28/2024 11:51:54 learning about colonoscopy Not available 08/28/2024 11:51:53 body mass index: care instructions Not available 08/28/2024 11:51:53 A healthy lifestyle: care instructions Not available 08/28/2024 11:51:53 calcium and vitamin D combination Not available 08/28/2024 11:51:54 eating healthy foods: care instructions Not available 08/28/2024 11:51:53 exercise program: getting started Not available 08/28/2024 11:51:53 mammogram screening patient instructions Not available 08/28/2024 11:51:54 mammogram: about this test Not available 08/28/2024 11:51:53 learning about breast cancer screening Not available 08/28/2024 12:03:51 Reason for Referral Breast Evaluation Referral f or Breast lump Referring Physician: Annie Martinez, PREPPER, Encounter Date: 12/12/2021 Results Created Date Observation Date Name Description Value Unit Range Abnormal Flag Note LastModifiedBy Organization Detail LastModifiedTime 05/01/2005/02/2023 HPV HIGH RISK HPV high risk Negati ve negati ve normal The HPV High Risk assay is inten ded for use as co-te sting with cytol ogy and not as a subst itute for regul ar cervi rodney cytol ogy scree mario. This assay is not inten ded for use as a scree mario devic e for women under age 30 with michell l cervi rodney cytol ogy. Not Available [facility] [address] [place], [address], 05/02/2023 14:57:19 05/01/20 23 05/04/2023 THINP REP TIS PAP clinical information: normal None given Not Available [address], [address], 05/04/2023 11:53:59 05/01/20 23 05/04/2023 THINP REP TIS PAP LMP: normal NONE GIVEN Not Available [address], [address], 05/04/2023 11:53:59 05/01/20 23 05/04/2023 THINP REP TIS PAP prev. Pap: normal NONE GIVEN Not Available [address], [address], 05/04/2023 11:53:59 05/01/20 23 05/04/2023 THINP REP TIS PAP prev. BX: normal NONE GIVEN Not Available [address], [address], 05/04/2023 11:53:59 05/01/2005/04/2023 THINP REP TIS PAP source: normal Cervi x Not Available [address], [address], 05/04/2023 11:53:59 05/01/2005/04/2023 THINP REP TIS PAP statement of adequacy: normal Satis facto ry for evalu ation . Endoc ervic al/tr ansfo rmati on zone compo nent prese nt. Age and/o r menst rual statu s not provi ded Not Available [address], [address], 05/04/2023 11:53:59 05/01/20 23 05/04/2023 THINP REP TIS PAP interpretati on/result: normal Cytol ogy Resul ts: Negat iesha for intra epith elial lesio n or malig marion . Not Available [address], [address], 05/04/2023 11:53:59 05/01/2005/04/2023 THINP REP TIS PAP comment: normal This Pap test has been evalu ated with naty parker techn ology . Not Available [facility] [address] [address] [place], [address], 05/04/2023 11:53:59 05/01/20 23 05/04/2023 THINP REP TIS PAP cytotechnolo gist: normal MEF, CT( CP) CT scree mario locat ion: [address] [address] [place] [address] Not Available [facility] [address] [address] [place], [address], 05/04/2023 11:53:59 05/01/2005/04/2023 THINP REP TIS PAP comment EXPLA NATOR Y NOTE: The Pap is a scree mario test for cervi rodney cance r. It is not a diagn ostic test and is subje ct to false negat iesha and false posit iesha resul ts. It is most relia ble when a satis facto ry sampl e, regul alex obtai reggie, is submi tted with relev ant clini rodney findi ngs and histo ry, and when the Pap resul t is evalu ated along with histo avinash and curre nt clini rodney infor matio n. Not Available [facility] [address] [address] [facility], [place], [address], 05/04/2023 11:53:59 05/01/2005/04/2023 HPV MRNA E6/E7 HPV MRNA E6/E7 Not Detect ed not detect ed normal Metho dolog y: Trans cript ion-M ediat ed Ampli ficat ion This assay detec ts E6/E7 viral messe nger RNA (mRNA ) from 14 high- risk HPV types (16,1 8,31, 33,35 ,39,4 5,51, 52,56 ,58,5 9,66, 68). Cervi rodney sourc es are requi red for HPV testi ng. If a vagin al sourc e from a patie nt who has had a total hyste recto my with remov al of cervi x was submi tted, pleas e conta ct the testi ng labor atory for alter nativ e testi ng optio ns. For addit ional infor vaibhav gil, praful e refer to http: //[facility] thee gil.que stdia gnost ics.c om/fa q/FAQ 129v1 (This link if provi ded for infor vaibhav gil/ educa rachele l purpo ses only. ) Not Available [address], [address], 05/04/2023 11:54:00 08/28/19 25 08/29/2024 HPV HIGH RISK HPV high risk Negati ve negati ve normal The HPV High Risk assay is inten ded for use as co-te sting with cytol ogy and not as a subst itute for regul ar cervi rodney cytol ogy scree mario. This assay is not inten ded for use as a scree mario devic e for women under age 30 with michell l cervi rodney cytol ogy. Not Available [address], [address], 08/30/2024 10:00:10 08/28/19 25 09/02/2024 THINP REP TIS PAP clinical information: normal None given Not Available [facility] [address], [address], 09/02/2024 11:23:57 08/28/19 25 09/02/2024 THINP REP TIS PAP LMP: normal NONE GIVEN Not Available [facility] [employer] [address], [address], 09/02/2024 11:23:57 08/28/19 25 09/02/2024 THINP REP TIS PAP prev. Pap: normal NONE GIVEN Not Available [address], [address], 09/02/2024 11:23:57 08/28/19 25 09/02/2024 THINP REP TIS PAP prev. BX: normal NONE GIVEN Not Available [facility] [address] [place], [address], 09/02/2024 11:23:57 08/28/19 25 09/02/2024 THINP REP TIS PAP source: normal Cervi x Not Available [address] [address] [place], [address], 09/02/2024 11:23:57 08/28/19 25 09/02/2024 THINP REP TIS PAP statement of adequacy: normal SATIS FACTO RY FOR EVALU ATION Age and/o r menst rual statu s not provi ded Not Available [address], [address], 09/02/2024 11:23:57 08/28/19 25 09/02/2024 THINP REP TIS PAP interpretati on/result: Cytol ogy Resul ts: Negat iesha for intra epith elial lesio n or rosario schultz . Atrop shwetha lucio rn; predo bryn montenegro parab ramez cells Not Available [address] [address] [place], [address], 09/02/2024 11:23:57 08/28/19 25 09/02/2024 THINP REP TIS PAP comment: normal This Pap test has been evalu ated with compu ter kiana sunshine techn ology . Not Available [facility] [address] [place] [address], [address], 09/02/2024 11:23:57 08/28/19 25 09/02/2024 THINP REP TIS PAP cytotechnolo gist: normal DONOVAN, CT( CP) CT Scree mario locat ion: [id number] [place] [address] Not Available [address], [place], [address], 09/02/2024 11:23:57 08/28/1909/02/2024 THINP REP TIS PAP comment EXPLA NATPIETRO Y NOTE: The Pap is a scree mario test for cervi rodney cance r. It is not a diagn ostic test and is subje ct to false negat iesha and false posit iesha resul ts. It is most relia ble when a satis facto ry sampl e, regul alex obtai reggie, is submi tted with relev ant clini rodney findi ngs and histo ry, and when the Pap resul t is evalu ated along with histo avinash and curre nt clini rodney infor matio n. Not Available [facility] [address] [address] , [place], [address], 09/02/2024 11:23:57 04/17/20 MAMMO , scree mario, digit al, bilat eral No observ ation record ed. [email or web address] Not Available 2021 11:56:19 11/09/19 23 11/02/2022 MRI, breas t, bilat eral, w/wo contr ast No observ ation record ed. [address] [facility] [address], [place], [address], 11/13/2022 17:33:42 06/29/20 23 06/27/2023 MAMMO , scree mario, bilat eral No observ ation record ed. [facility] [address], [place], [address], 07/02/2023 11:53:44 06/29/20 23 06/27/2023 MAMMO , diagn ostic , bilat eral No observ ation record ed. [facility] [address], [place], [address], 07/02/2023 11:54:17 06/29/20 23 06/27/2023 MAMMO , diagn ostic , bilat eral No observ ation record ed. [facility] [address], [place], [address], 07/02/2023 11:54:42 03/06/20 24 02/08/2024 MRI, breas t, bilat eral, w/wo contr ast No observ ation record ed. [address] [facility] [address], [place], [address], 03/11/2024 18:39:09 Result Notes None recorded. Problems Name Problem SNOMED Code Status Onset Date Resolution Date Notes Provider Name and Address Organization Details Recorded Time SNOMED CT Concept Completed 201501/06/2016 Encounte r for follow-u p examinat ion after complete d treatmen t for conditio ns other than malignan t neoplasm ; Progress : Stable Added By: Roya Helton Add to Current Problems : NO ProblemS tatus: Resolve Not Available [facility] 2 21:04:09 Clinical finding Completed 201410/04/2015 Encounte r for surveill ance of injectab le contrace ptive; Progress : Stable Added By: Robyn Mackey Add to Current Problems : NO ProblemS tatus: Resolve Not Available [facility] 2 21:04:09 Uses contrace ption [id number] Completed 201501/06/2016 Visit for counseli roxana and contrace ption advice; other; Severity : Moderate Progress : Stable Added By: Kirsty Little Add to Current Problems : NO ProblemS tatus: Resolve Not Available [facility] 1 04:22:22 Multigra edison of advanced maternal age [id number] Completed 201308/12/2014 Advanced Maternal Age, multigra edison; Location : None Progress : Stable Added By: Sarmad Dewitt Add to Current Problems : NO ProblemS tatus: Resolve Advanced Maternal Age, multigra edison; Location : None Progress : Stable Added By: Kelly Canales Add to Current Problems : NO ProblemS tatus: Resolve; Start Date : 07/14/20 14 Advan emmanuel Maternal Age, multigra edison; Location : None Progress : Stable Added By: Terese Madrigal Add to Current Problems : NO ProblemS tatus: Resolve; Start Date : 07/10/20 14 Advan emmanuel Maternal Age, multigra edison; Location : None Progress : Stable Added By: Orozco, Shade V Add to Current Problems : NO ProblemS tatus: Resolve; Start Date : 07/07/20 14 Advan emmanuel Maternal Age, multigra edison; Location : None Progress : Stable Added By: Pennie aRo Add to Current Problems : NO ProblemS tatus: Resolve; Start Date : 06/30/20 14 Advan emmanuel Maternal Age, multigra edison; Location : None Progress : Stable Added By: Omkar Dewitti a Add to Current Problems : NO ProblemS tatus: Resolve; Start Date : 06/26/20 14 Advan emmanuel Maternal Age, multigra edison; Location : None Progress : Stable Added By: Kavya Dewittssi a Add to Current Problems : NO ProblemS tatus: Resolve; Start Date : 06/23/20 14 Advan emmanuel Maternal Age, multigra edison; Location : None Progress : Stable Added By: Orozco, Shade V Add to Current Problems : NO ProblemS tatus: Resolve; Start Date : 06/19/20 14 Advan emmanuel Maternal Age, multigra edison; Location : None Progress : Stable Added By: Kavya Dewittssi a Add to Current Problems : NO ProblemS tatus: Resolve; Start Date : 06/16/20 14 Advan emmanuel Maternal Age, multigra edison; Location : None Progress : Stable Added By: Terese Madrigal Add to Current Problems : NO ProblemS tatus: Resolve; Start Date : 01/13/20 14 Not Available [facility] 2 21:03:54 Chronic fatigue syndrome [id number] Active 2020 Chronic fatigue, unspecif ied; Progress : Stable Added By: Bebe Mackey Add to Current Problems : YES ProblemS tatus: Current Not Available [facility] 2 21:04:02 Leukorrh ea [id number] Completed 201309/11/2014 Vaginal Discharg e; Location : None Progress : Stable Added By: Terese Madrigal Add to Current Problems : NO ProblemS tatus: Resolve Not Available [facility] 2 21:04:05 Eruption [id number] Active 2020 Rash and other nonspeci fic skin eruption ; Progress : Stable Added By: Bebe Mackey Add to Current Problems : YES ProblemS tatus: Current Not Available [facility] 2 21:03:55 Menopaus e present 871253138 Active 2020 Menopaus al and female climacte avinash states; Progress : Stable Added By: Randi Gomez Add to Current Problems : YES ProblemS tatus: Current Not Available [facility] 2 21:04:10 Family history of breast cancer 353193689 Completed 201405/07/2019 Family history of breast cancer; Progress : Stable Added By: Marisa Max Add to Current Problems : NO ProblemS tatus: Resolve Family history of malignan t neoplasm of breast; Progress : Stable Added By: Marisa Max Add to Current Problems : NO ProblemS tatus: Resolve Not Available [facility] 2 21:04:05 Educatio n Completed 201501/06/2016 Encounanthony r for other general counseli ng and advice on contrace ption; Progress : Stable Added By: Kirsty Little Add to Current Problems : NO ProblemS tatus: Resolve Not Available [facility] 2 21:04:09 Contrace ptive usage NOS Completed 201404/13/2015 Initiati on of other contrace ptive measures ; Location : None Severity : Moderate Progress : Stable Added By: Isa Santiago Add to Current Problems : NO ProblemS tatus: Resolve Not Available [facility] 1 04:22:26 Radiolog ic finding [id number] Active 2020 Other abnormal and inconclu sive findings on diagnost ic imaging of breast; Progress : Stable Added By: Heidi Tovar Add to Current Problems : YES ProblemS tatus: Current Not Available [facility] 2 21:03:55 Counseli ng for elective steriliz ation done [id number] 9102 Completed 201501/06/2016 Office visit for steriliz ation; Severity : Moderate Progress : Stable Added By: Roya Helton Add to Current Problems : NO ProblemS tatus: Resolve Not Available [facility] 1 04:22:27 Excessiv e growth affectin g manageme nt of mother 60891777 Completed 201308/12/2014 Large for dates; Location : None Progress : Stable Added By: Sarmad Dewitt Add to Current Problems : NO ProblemS tatus: Resolve Large for dates; Location : None Progress : Stable Added By: Kelly Canales Add to Current Problems : NO ProblemS tatus: Resolve; Start Date : 07/14/20 14 Large for dates; Location : None Progress : Stable Added By: Sarmad Dewitt Add to Current Problems : NO ProblemS tatus: Resolve; Start Date : 06/16/20 14 Large for dates; Location : None Progress : Stable Added By: Jacinda Hagen Add to Current Problems : NO ProblemS tatus: Resolve; Start Date : 06/02/20 14 Not Available [facility] 2 21:04:05 Pregnanc y test negative 627686372 Completed 201412/25/2014 Pregnanc y examinat ion or test, negative result; Progress : Stable Added By: Roya Helton Add to Current Problems : NO ProblemS tatus: Resolve Not Available [facility] 2 21:04:10 Removal of intraute rine contrace ptive device done [id number] 9105 Completed 201402/12/2015 Removal of IUD; Location : None Severity : Moderate Progress : Stable Added By: Kirsty Little Add to Current Problems : YES ProblemS tatus: Resolve Not Available [facility] 1 04:22:27 Breast neoplasm screenin g NOS Completed 201503/06/2016 Screenin g for breast cancer, unspecif ied; Severity : Moderate Progress : Stable Added By: Aminata Murray Add to Current Problems : NO ProblemS tatus: Resolve Screenin g mammogra m - other; Severity : Moderate Progress : Stable Added By: Prashant Arevalo Add to Current Problems : NO ProblemS tatus: Resolve; Start Date : 08/30/19 16 Not Available [facility] 1 04:22:27 Injectio n given [id number] Completed 201410/04/2015 Follow-u p visit for Depo Provera injectio n; Severity : Moderate Progress : Stable Added By: Robyn Mackey Add to Current Problems : NO ProblemS tatus: Resolve Not Available [facility] 1 04:22:27 Procedur e Completed 201501/06/2016 Encounte r for other preproce dural examinat ion; Progress : Stable Added By: Roya Helton Add to Current Problems : NO ProblemS tatus: Resolve Not Available [facility] 2 21:03:54 Sampling of vagina for Papanico laou smear Active 2018 Encounte r for gynecolo gical examinat ion (general ) (routine ) without abnormal findings ; Progress : Stable Added By: Randi Gomez Add to Current Problems : YES ProblemS tatus: Current Not Available [facility] 2 21:03:55 Steriliz ation procedur e Completed 201501/06/2016 Encounte r for steriliz ation; Progress : Stable Added By: Roya Helton Add to Current Problems : NO ProblemS tatus: Resolve Not Available [facility] 2 21:04:05 Insertio n of intraute rine contrace ptive device done [id number] 9109 Completed 201402/12/2015 Encounte r for insertio n of intraute rine contrace ptive device; Location : None Severity : Moderate Progress : Stable Added By: Roya Helton Add to Current Problems : YES ProblemS tatus: Resolve Not Available [facility] 1 04:22:29 IUD check [id number] Completed 201402/12/2015 Intraute rine contrace ptive device (IUD) follow up; Location : None Severity : Moderate Progress : Stable Added By: Fernanda Baxter Add to Current Problems : YES ProblemS tatus: Resolve Not Available [facility] 1 04:22:29 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 2017 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 t neoplasm , breast; Severity : Moderate Progress : Stable Added By: Tasia Juarez Add to Current Problems : NO ProblemS tatus: Resolve; Start Date : 10/07/19 17 Irene ic suscepti bility to malignan t neoplasm , breast; Location : None Severity : Moderate Progress : Stable Added By: Tasia Juarez Add to Current Problems : YES ProblemS tatus: Current 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 t neoplasm of breast; Severity : Moderate Progress : Stable Added By: Bri De La Cruz Add to Current Problems : YES ProblemS tatus: Current; Start Date : 02/13/20 15 Not Available [facility] 1 04:22:29 Breast neoplasm screenin g status 165750729 Active 2015 Encounte r for other screenin g for malignan t neoplasm of breast; Severity : Moderate Progress : Stable Added By: Dinora Quinn Add to Current Problems : YES ProblemS tatus: Current Not Available [facility] 04:22:31 Family history of malignan t neoplasm of breast in first degree relative 229699014 Active 2014 Family history of breast cancer; Location : None Progress : Stable Added By: Marisa Max Add to Current Problems : YES ProblemS tatus: Current Not Available [facility] 2 21:03:55 Surgical follow-u p - normal [id number] Completed 201501/06/2016 Follow-u p exam followin g surgery; Location : None Severity : Moderate Progress : Stable Added By: Roya Helton Add to Current Problems : YES ProblemS tatus: Resolve Follow-u p exam followin g surgery; Severity : Moderate Progress : Stable Added By: Jacinda Hagen Add to Current Problems : NO ProblemS tatus: Resolve; Start Date : 08/12/19 15 Not Available [facility] 1 04:22:33 Antenata l screenin g Completed 201309/11/2014 Antenata l screenin g; unspecif ied; Location : None Added By: Sarmad Dewitt Add to Current Problems : NO ProblemS tatus: Resolve Antenata l screenin g; unspecif ied; Location : None Added By: Terese Madrigal Add to Current Problems : NO ProblemS tatus: Resolve; Start Date : 05/11/20 14 Not Available [facility] 2 21:04:00 Pregnanc y detectio n examinat ion Completed 201308/12/2014 Pregnanc y examinat ion or test, pregnanc y unconfir med; Location : None Progress : Stable Added By: Terese Madrigal Add to Current Problems : NO ProblemS tatus: Resolve Pregnanc y examinat ion or test, pregnanc y unconfir med; Location : None Progress : Stable Added By: Gabriella Patel Add to Current Problems : NO ProblemS tatus: Resolve; Start Date : 12/03/19 14 Not Available [facility] 2 21:04:02 Postoper ative follow-u p visit Completed 201501/06/2016 Follow-u p exam followin g surgery; Location : None Progress : Stable Added By: Roya Helton Add to Current Problems : YES ProblemS tatus: Resolve Follow-u p exam followin g surgery; Location : None Progress : Stable Added By: Jacinda Hagen Add to Current Problems : YES ProblemS tatus: Resolve; Start Date : 08/12/19 15 Not Available [facility] 2 21:04:02 Venereal disease screenin g Completed 201307/26/2014 Screenin g for STDs; Progress : Stable Added By: Blanco Thomas Add to Current Problems : NO ProblemS tatus: Resolve Not Available [facility] 2 21:04:02 Postpart um care Completed 201402/12/2015 Visit for routine postpart um follow-u p; Location : None Progress : Stable Added By: Kirsty Little Add to Current Problems : YES ProblemS tatus: Resolve Not Available [facility] 2 21:04:02 Pre-surg abraham testing Completed 201501/06/2016 Encounte r for preproce dural laborato ry examinat ion; Progress : Stable Added By: Roya Helton Add to Current Problems : NO ProblemS tatus: Resolve Not Available [facility] 2 21:04:07 Screenin g mammogra phy Active 2019 Encounte r for screenin g mammogra m for malignan t neoplasm of breast; Progress : Stable Added By: Ai Garcia Add to Current Problems : YES ProblemS tatus: Current Screenin g mammogra m - other; Location : None Progress : Stable Added By: Prashant Arevalo Add to Current Problems : YES ProblemS tatus: Resolve; Start Date : 08/30/19 16 Not Available [facility] 2 21:04:07 Routine antenata l care Completed 201302/12/2015 Pregnanc y; Location : None Progress : Stable Added By: Sarmad Dewitt a Add to Current Problems : NO ProblemS tatus: Resolve Pregnanc y; Location : None Progress : Stable Added By: Kelly Canales Add to Current Problems : NO ProblemS tatus: Resolve; Start Date : 07/14/20 14 Pregn juan diego; Location : None Progress : Stable Added By: Shade Orozco V Add to Current Problems : NO ProblemS tatus: Resolve; Start Date : 07/07/20 14 Pregn juan diego; Location : None Progress : Stable Added By: Pennie Rao Add to Current Problems : NO ProblemS tatus: Resolve; Start Date : 06/30/20 14 Pregn juan diego; Location : None Progress : Stable Added By: Kavya Dewittssi a Add to Current Problems : NO ProblemS tatus: Resolve; Start Date : 06/26/20 14 Pregn juan diego; Location : None Progress : Stable Added By: Kavya Dewittssi a Add to Current Problems : NO ProblemS tatus: Resolve; Start Date : 06/23/20 14 Pregn juan diego; Location : None Progress : Stable Added By: Shade Orozco V Add to Current Problems : NO ProblemS tatus: Resolve; Start Date : 06/19/20 14 Pregn juan diego; Location : None Progress : Stable Added By: Kavya Dewittssi a Add to Current Problems : NO ProblemS tatus: Resolve; Start Date : 06/16/20 14 Pregn juan diego; Location : None Progress : Stable Added By: Kavya Dewittssi a Add to Current Problems : NO ProblemS tatus: Resolve; Start Date : 06/02/20 14 Pregn juan diego; Location : None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 Discharge Information Feeding Method Contraceptive Method Maternal HG B and HCT Levels Ob Episode Information Episode Created Date Number of Fetuses Patient Bloodtype Patient rh Status Prepregnancy Weight lbs Domestic Partner Domestic Partner Phone Father Name Magazine Supervisor Status 10/21/19 22 1 CLOSED Fetus Data First Name Last Name Admitted to NICU Weight (g) Sex Living Outcome Pediatric Complications Fetus ID Race Codes Race Delivery Type 4082.32 [phone] M [id number] Noe Calculation Initial Noe Date Initial Exam Date Initial Exam Provider Initial Ultrasound Date Last Menstrual Period Date Ultra Sound Weeks Gestation 0 Eighteen To Twenty Week Noe Update Ultra Sound Date Fundal Height At Umbil Quickening Date Ultra Sound Latest Weeks Gestation Final Noe Confirmed By Final Noe Confirmed Date Final Noe Date Ultra Sound Latest Days Gestation 0 0 Menstrual History Last Menstrual Date Menses Monthly On Bcp Conception Prior Menses Frequency Hcg Plus Date Menarche Onset Age Delivery Information Delivery Date Delivery Type Labor Anesthesia Weeks Gestation Incision Type Labor Labor Length Hrs Delivered By Post Complications Tubal Sterilization Discharge Date Comments 4 39.1 false Comments : failure to progress Discharge Information Feeding Method Contraceptive Method Maternal HG B and HCT Levels
--- OUTSIDE RECORDS SUMMARY | 2024-09-11 07:57 | XMS_ITS | Patient Health Summary ---
Author Organization [facility] Address [address] [place] [place] [address] Care Team Providers Care Program/Music Director Name Role Phone Maryan Sutton MD Primary Care Provider [phone] Note from [facility],non-owned Affiliates and Associated Physician Practices is amultiple site organization consisting of ambulatory clinics and hospital sitesin [place], [place], [place] and [place]. This disclosure is being madepursuant to the Care Everywhere program and may not contain all information available regarding this patient. Last updated 18.[facility] Allergies No known active allergies Social History Tobacco Use Types Packs/Day Years Used Date Smoking Tobacco: Never Assessed Sex and Gender Information Value Date Recorded Sex Assigned at Not on file Gender Identity Not on file Sexual Orientation Not on file Procedures * MAMMO BILAT SCREENING(Performed 04/02/2020) Performed for Encounter for screening mammogram for malignant neoplasm of breast * MRI BREAST BILAT WWO CONTRAST(Performed 06/25/2019) Performed for Genetic susceptibility to malignant neoplasm of breast * MAMMO BILAT SCREENING(Performed 08/20/2018) Performed for Encounter for screening mammogram for malignant neoplasm of breast * MRI BREAST BILAT WWO CONTRAST(Performed 02/07/2018) Performed for Genetic susceptibility to malignant neoplasm of breast * MAMMO BILAT SCREENING(Performed 06/07/2017) Performed for Encounter for screening mammogram for malignant neoplasm of breast * MRI BREAST BILAT WWO CONTRAST(Performed 12/15/2016) Performed for Genetic susceptibility to malignant neoplasm of breast Results * DENIS SCREENING BILATERAL DIGITAL [id number] (04/02/2020 11:42 AM CDT) Only the most recent of3 resultswithin the time period is included. Anatomical Region Laterality Modality Breast Bilateral Mammography 04/02/2020 12:5 0 PM CDT Impressions 04/02/2020 12:53 PM CDT 1.BI-RADS Category 2. 2. Annual screening mammography recommended. A) A negative report should not delay a biopsy if a dominant or clinically suspicious mass is present. B) Adenosis and dense breasts may obscure an underlying neoplasm. C) Study interpreted with computer-aided detection. MQSA BI-RADS Categories: Category 0 - needs additional imaging evaluation. Category 1 - negative. Category 2 - benign findings. Category 3 - probably benign findings, but short interval followup is recommended. Category 4 - suspicious abnormality and biopsy should be considered though the lesion may well be benign. Category 5 - highly suggestive of malignancy and appropriate action should be taken. Narrative 04/02/2020 12:53 PM CDT DIGITAL BILATERAL SCREENING MAMMOGRAM WITH COMPUTER-AIDED DETECTION AND 3-D TOMOSYNTHESIS DATE: 04/02/2020 11:43 AM HISTORY: Screening examination. No complaints listed referable to either breast. Breast carcinoma in mother at age 65. COMPARISON: Prior studies dating back to 01/14/2016. FINDINGS: Digital 2-D mammography and 3-D tomosynthesis performed of both breasts. Heterogeneously dense parenchymal pattern bilaterally. Benign-appearing nodularity in both breasts with minor benign calcification. Parenchymal pattern has similar appearance to prior studies. BREAST COMPOSITION: The breasts are heterogeneously dense, which may obscure small masses. Maryan Sutton MD MAMMO ORDERABLES * [id number] [place] [id number] (06/25/2019 10:57 AM WAIVER ANALYST) Only the most recent of3 resultswithin the time period is included. Anatomical Region Laterality Modality Breast Bilateral Magnetic Resonan ce 06/25/2019 4:49 PM WAIVER ANALYST Impressions 06/25/2019 5:03 PM WAIVER ANALYST 1.BI-RADS Category 2. 2.Routine follow-up suggested. MQSA BI-RADS Categories: Category 0 - needs additional imaging evaluation. Category 1 - negative. Category 2 - benign findings. Category 3 - probably benign findings, but short interval follow-up is recommended. Category 4 - suspicious abnormality and biopsy should be considered though the lesion may well be benign. Category 5 - highly suggestive of malignancy and appropriate action should be taken. Narrative 06/25/2019 5:03 PM WAIVER ANALYST MRI BREAST BILAT WWO CONTRAST DATE: 06/25/2019 10:58 AM HISTORY: Screening examination. Breast carcinoma in mother at age 65. BRCA positive. COMPARISON: Bilateral breast MRI 02/07/2018. Mammogram 08/20/2018.. CONTRAST: No contrast. FINDINGS: Standard protocol utilized without and with intravenous gadolinium. Multiplanar reconstructions. Heterogeneously dense parenchymal pattern bilaterally. Moderate diffuse background parenchymal enhancement. Few tiny benign-appearing cysts in both breasts. The largest cyst is in the central left breast and measures 7.5 x 2.5 mm. No enhancing mass lesion identified. No abnormal segmental areas of enhancement. The axillary and prepectoral regions are unremarkable. Visible though nonpathologically enlarged lymph nodes in both axilla. Study reviewed in intradepartmental conference with concurrence. Dang Melendrez MD MR ORDERABLES Care Teams Program/Music Director Relationship Specialty Start Date End Date Maryan Sutton MD [address] [place] [phone] PCP - General Family Medicine 12/04/16
--- OUTSIDE RECORDS SUMMARY | 2024-09-11 07:57 | XMS_ITS | Referral Summary ---
Author Organization [facility] Address [address] [place] [address] Care Team Providers Care County Historian Name Role Phone Maryan Sutton MD Primary Care Provider Source Comments [facility],non-owned Affiliates and Associated Physician Practices is amultiple site organization consisting of ambulatory clinics and hospital sitesin [place], [place], [place] and [place]. This disclosure is being madepursuant to the Care Everywhere program and may not contain all information available regarding this patient. Last updated 18.[facility] Allergies No known active allergies Social History Tobacco Use Types Packs/Day Years Used Date Smoking Tobacco: Never Assessed Sex and Gender Information Value Date Recorded Sex Assigned at Not on file Gender Identity Not on file Sexual Orientation Not on file Plan of Treatment Not on file Procedures Procedure Name Priority Date/Time Associated Diagnosis Comments MAMMO BILAT SCREENING Routine 04/02/2020 11:42 AM CDT Encounter for screening mammogram for malignant neoplasm of breast from Last 3 Months or Most Recently Relevant to Health Maintenance Results * DENIS SCREENING BILATERAL DIGITAL [id number] (04/02/2020 11:42 AM CDT) Anatomical Region Laterality Modality Breast Bilateral Mammography [...] small masses. Maryan Sutton MD MAMMO ORDERABLES from Last 3 Months or Most Recently Relevant to Health Maintenance Care Teams County Historian Relationship Specialty Start Date End Date Maryan Sutton MD [address] [place] [phone] PCP - General Family Medicine 12/04/16
--- OUTSIDE RECORDS SUMMARY | 2024-09-11 07:57 | XMS_ITS | Clinical Summary ---
Author Organization [facility] Address [address] [place] [address] Care Team Providers Care Machine Coremaker Name Role Phone Maryan Sutton MD Primary Care Provider [phone] Source Comments [facility] [employer],non-owned Affiliates and Associated Physician Practices is amultiple site organization consisting of ambulatory clinics and hospital sitesin [place], [place], [place] and [place]. This disclosure is being madepursuant to the Care Everywhere program and may not contain all information available regarding this patient. Last updated 18.[facility] [employer] [facility] Allergies No known active allergies Family History Medical History Relation Name Comments Cancer - Breast Maternal Aunt 1 Cancer - Breast Maternal Aunt 2 Cancer - Breast Mother Cancer - Breast Other mat cousin Cancer - Ovarian Neg Hx Relation Name Status Comments Maternal Aunt 1 Maternal Aunt 2 Mother Other Social History Tobacco Use Types Packs/Day Years Used Date Smoking Tobacco: Never Assessed Sex and Gender Information Value Date Recorded Sex Assigned at Not on file Gender Identity Not on file Sexual Orientation Not on file Plan of Treatment Health Maintenance Due Date Last Done Comments COLOGUARD (AGES 45-75) - COLON CA SCREENING 1972 COLON MONITORING 1972 COLONOSCOPY - COLON CA SCREENING 1972 CT COLONOGRAPHY - COLON CA SCREENING 1972 Colorectal Cancer Screening 1972 FIT - COLON CA SCREENING 1972 FLEX SIG - COLON CA SCREENING 1972 LIPID TESTING 1972 PAP SMEAR 1972 HIV SCREENING 11/10/1987 HEPATITIS C SCREENING 11/05/1990 DTAP/TDAP/TD VACCINES (1 - Tdap) 11/10/1991 HEPATITIS B VACCINE (1 of 3 - 19+ 3-dose series) 11/10/1991 MAMMOGRAM 04/02/2022 04/02/2020, 08/06, 06/07/2017, Additional history exists PNEUMOCOCCAL VACCINE 50+ (1 of 1 - PCV) 2022 ZOSTER VACCINE (1 of 2) 2022 COVID-19 VACCINE (1 - season) 2024 INFLUENZA VACCINE (#1) 2024 9, 06/03/2018, 06/02/2018, Additional history exists DEPRESSION SCREENING 08/06/2024 HIB VACCINE Aged Out No longer eligi ble based on patient's age to complete this topic HPV VACCINE Aged Out No longer eligi ble based on patient's age to complete this topic MENINGOCOCCAL (Group B) VACCINE Aged Out No longer eligible based on patient's age to complete this topic MENINGOCOCCAL VACCINE Aged Out No nelda rosalba eligible based on patient's age to complete this topic PNEUMOCOCCAL VACCINE Aged Out No long er eligible based on patient's age to complete this topic Procedures Procedure Name Priority Date/Time Associated Diagnosis Comments MAMMO BILAT SCREENING Routine 04/02/2020 11:42 AM CDT Encounter for screening mammogram for malignant neoplasm of breast from Last 3 Months or Most Recently Relevant to Health Maintenance Results * DENIS SCREENING BILATERAL DIGITAL [id number] (04/02/2020 11:42 AM CDT) Anatomical Region Laterality [...] Recently Relevant to Health Maintenance Care Teams Machine Coremaker Relationship Specialty Start Date End Date Maryan Sutton MD [address] [place] [phone] PCP - General Family Medicine 12/04/16
== END 2024-09-11 07:47 | disposition home or self-care (01) ==
LOC: CHSIMG 07:52
PROVIDERS: PCP Internal Medicine
DX: Z12.31 Encounter for screening mammogram for malignant neoplasm of breast (principal)
CPT/HCPCS: 77063; 77067

== ENCOUNTER 2025-06-04 09:54 | Outpatient (CLI) | payer OTHER, SELFPAY ==
--- NOTE | ~2025-06-04 | MR_ITS ---
MR breast BI wo/w con 06/04/2025 11:22 CDT INDICATION: Palpable lump right breast TECHNIQUE: MRI of the breasts perform using standard protocol pre-and post IV contrast with the following sequences: Axial T2 STIR, axial T1, axial vibrant T1 with fat suppression precontrast and multiphasic postcontrast. 14 cc MultiHance administered intravenously. COMPARISON: Comparison to multiple prior studies sequentially, with oldest reviewed study dated 06/27/2023. FINDINGS: Right breast: There are small bilateral cysts in both breasts. There are no abnormalities on the precontrast sequences. There is mild background parenchymal enhancement. In the upper inner quadrant of the right breast there is a 6 mm focus of enhancement at 2:00 anterior third with rapid washout, most likely benign benign. Similar structure identified on prior MRI dated 02/08/2024 without enhancement. In the lower inner quadrant of the right breast at 6:00, middle third there is a 4 mm foci of rapid washout enhancement, likely background. No evidence of signal abnormalities in the axillary or internal mammary node distributions. LEFT BREAST: No signal abnormalities on precontrast sequences. There is mild background parenchymal enhancement. No enhancing lesions following contrast administration. No areas of enhancement meeting threshold criteria on CAD analysis. No evidence of signal abnormalities in the axillary or internal mammary node distributions.] IMPRESSION: 1: Right breast: Probable benign mass/foci of enhancement in the right breast described above. Recommend diagnostic right mammogram and right breast ultrasound. BI-RADS Category 0. 2: Left breast: Negative. No evidence of malignancy. BI-RADS category 1. Recommend annual mammography follow-up. Reviewed, dictated and finalized at location B. IMPRESSION: 1: Right breast: Probable benign mass/foci of enhancement in the right breast described above. Recommend diagnostic right mammogram and right breast ultrasou nd. BI-RADS Category 0. 2: Left breast: Negative. No evidence of malignancy. BI-RADS category 1. Re commend annual mammography follow-up.
--- OUTSIDE RECORDS SUMMARY | 2025-06-04 10:54 | XMS_ITS | Clinical Summary ---
Author Organization [facility] Address [address] [place] [address] Care Team Providers Care Utility Helicopter Repairer Name Role Phone Maryan Sutton MD Primary Care Provider [phone] Source Comments [facility] [employer],non-owned Affiliates and Associated Physician Practices is amultiple site organization consisting of ambulatory clinics and hospital sitesin [place], [place], [place] and [place]. This disclosure is being madepursuant to the Care Everywhere program and may not contain all information available regarding this patient. Last updated 18.[facility] [employer] Allergies No known active allergies Family History [...] Years Used Date Smoking Tobacco: Never Assessed Comments No Sex and Gender Information Value Date Recorded Sex Assigned at Not on file Legal Sex Female 10:26 AM CDT Gender Identity Not on file Sexual Orientation [...] COLON CA SCREENING 1972 LIPID TESTING 1972 HIV SCREENING 11/10/1987 HEPATITIS C SCREENING 11/05/1990 DTAP/TDAP/TD VACCINES (1 - Tdap) 11/10/1991 HEPATITIS B VACCINE (1 of 3 - 19+ 3-dose series) 11/10/1991 PAP SMEAR 1993 MAMMOGRAM 04/02/2022 04/02/2020, 08/06, 06/07/2017, Additional history exists PNEUMOCOCCAL VACCINE 50+ (1 of 1 - PCV) 2022 ZOSTER VACCINE (1 of 2) 2022 DEPRESSION SCREENING 08/06/2024 COVID-19 VACCINE (1 - season) 2025 INFLUENZA VACCINE (#1) 2025 9, 06/03/2018, 06/02/2018, Additional history exists HIB VACCINE Aged Out No longer eligi ble based on patient's age to complete this topic HPV VACCINE Aged Out No longer eligi ble based on patient's age to complete this topic MENINGOCOCCAL (Group B) VACCINE SHARED DECISION-MAKING Aged Out No longer eligible based on patient's age to complete this topic MENINGOCOCCAL GROUPS A/C/Y/W VACCINE Aged Out No longer eligible based on patient's age to complete this topic Procedures Procedure Name Priority Date/Time Associated Diagnosis Comments MAMMO BILAT SCREENING Routine 04/02/2020 11:42 AM CDT Encounter for screening mammogram for malignant neoplasm of breast from Last 3 Months or Most Recently Relevant to Health Maintenance Results * DENIS SCREENING BILATERAL DIGITAL [id number] (04/02/2020 11:42 AM CDT) Anatomical Region Laterality [...] small masses. Maryan Sutton MD MAMMO ORDERABLES Final Result from Last 3 Months or Most Recently Relevant to Health Maintenance Insurance [employer] [place] [facility] SELF PAY NO INSURANCE Member Subscriber Plan / Payer (Ef fective for All Dates) Name:Clementina Romero Member ID:Not on file Relation to Subscriber:Not on file Name:CLEMENTINA ROMERO Subscriber ID:Not on file Address: [address] [place] [id number] Payer ID:Not on file Group ID:Not on file Type:Self Pay Address: [place], [place] Care Teams Utility Helicopter Repairer Relationship Specialty Start Date End Date Maryan Sutton MD [address] [place] [phone] PCP - General Family Medicine 12/04/16
--- OUTSIDE RECORDS SUMMARY | 2025-06-04 10:54 | XMS_ITS | Data Portability ---
Author Organization [employer] , [facility] Address [address] [place] [address] Assessment No assessment recorded. Plan of Treatment Reminders Order Date Submit Date Provider Last Modified By Organization Details Last Modified Time Details Appointments None recorded. Lab HPV E6+E7 mRNA, qualitativ e PCR, cervix 2024 025 [facility], [address] [place], [address], 5 10:00:11 pap, LB 2024 025 [employer] [facility], [address] [place], [address], 5 11:23:57 pap, LB 2022 023 [employer] [facility], [address] [place], [address], 3 11:53:59 HPV E6+E7 mRNA, qualitativ e PCR, cervix 2022 023 [place] [employer] [facility], [address] [place], [address], 3 14:57:19 Referral breast evaluation referral 2021 022 [email or web address] Not available 13:14:22 Procedures None recorded. Surgeries None recorded. Imaging MAMMO, screening, digital, bilateral 2024 025 [facility] (Mammography) , [address], [place], [address], 5 14:39:16 MAMMO, screening, digital, bilateral [address], [address], [place], [address], 3 16:29:06 MAMMO, diagnostic , unilateral - 1cm firm nontender palpable lump on Right breast 3cm from nipple at 6 o'clock 2021 022 [facility], [address] [facility] [address], [place], [address], 2 17:37:42 MRI, breast, bilateral, w/wo contrast 2021 022 [facility], [address] [facility] [address], [place], [address], 2 17:37:42 MAMMO, screening, digital, bilateral 2021 022 [facility], [address], [place], [address], 2 10:22:46 Medication Orders None recorded. Patient TargetsNo targets recorded. Patient Instructions Encounter Date Encounter Id Patient Instructions Last Modified By Organization Details Last Modified Time 12/12/2021 [id number] breast lumps: care instructions [email or web address] Not available 12/12/2021 12:27:58 abuse/domestic violence education [email or web address] Not available 12/12/2021 12:27:58 eating healthy foods: care instructions [email or web address] Not available 12/12/2021 12:27:58 general health care education [email or web address] Not available 12/12/2021 12:27:58 weight management education [email or web address] Not available 12/12/2021 12:27:58 05/01/2023 [id number] Patient Health Questionnaire-9* kbritsch Not available 05/02/2023 10:39:49 abuse/domestic violence education [email or web address] Not available 05/01/2023 14:41:57 eating healthy foods: care instructions [email or web address] Not available 05/01/2023 14:41:57 general health care education rachelzoilatolu Not available 05/01/2023 14:41:57 weight management education carina Not available 05/01/2023 14:41:57 mammogram: about this test carina Not available 05/01/2023 14:41:57 08/28/2024 [id number] learning about depression screening Not available 08/28/2024 [...] or Breast lump Referring Physician: Annie Martinez, [employer]ER, Encounter Date: 12/12/2021 Results Created Date Observation Date Name Description Value Unit Range Abnormal Flag Note LastModifiedBy Organization Detail LastModifiedTime 05/01/2005/02/2023 HPV HIGH RISK HPV high risk Negati ve negati ve normal The HPV High Risk assay is inten ded for use as co-te sting with cytol ogy and not as a subst itute for regul ar cervi elizabeth cytol ogy scree mario. This assay is not inten ded for use as a scree mario devic e for women under age 30 with michell l cervi elizabeth cytol ogy. Not Available [facility] [address] [place], [address], 05/02/2023 14:57:19 05/01/20 23 05/04/2023 THINP REP TIS PAP clinical information: normal None given Not Available [address], [address], 05/04/2023 11:53:59 05/01/20 23 05/04/2023 THINP REP TIS PAP LMP: normal NONE GIVEN Not Available [address], [address], 05/04/2023 11:53:59 05/01/20 23 05/04/2023 THINP REP TIS PAP prev. Pap: normal NONE GIVEN Not Available [address], [address], 05/04/2023 11:53:59 05/01/20 23 05/04/2023 THINP REP TIS PAP prev. BX: normal NONE GIVEN Not Available [address], [address], 05/04/2023 11:53:59 05/01/2005/04/2023 THINP REP TIS PAP source: normal Cervi x Not Available [address], [address], 05/04/2023 11:53:59 05/01/2005/04/2023 THINP REP TIS PAP statement of adequacy: normal Satis facto ry for evalu ation . Endoc ervic al/tr ansfo rmati on zone compo nent prese nt. Age and/o r menst rual statu s not provi ded Not Available [address], [address], 05/04/2023 11:53:59 05/01/2005/04/2023 THINP REP TIS PAP interpretati on/result: normal Cytol ogy Resul ts: Negat iesha for intra epith elial lesio n or rosario schultz . Not Available [address] [address] [place], [address], 05/04/2023 11:53:59 05/01/2005/04/2023 THINP REP TIS PAP comment: normal This Pap test has been evalu ated with naty parker techn ology . Not Available [address] [address] [place], [address], 05/04/2023 11:53:59 05/01/20 23 05/04/2023 THINP REP TIS PAP cytotechnolo gist: normal MEF, CT( CP) CT scree mario locat ion: [address] [address] [place] [address] Not Available [address] [address] [place], [address], 05/04/2023 11:53:59 05/01/2005/04/2023 THINP REP TIS PAP comment EXPLA NATOR Y NOTE: The Pap is a scree mario test for cervi elizabeth cance r. It is not a diagn ostic test and is subje ct to false negat iesha and false posit iesha resul ts. It is most relia ble when a satis facto ry sampl e, regul alex obtai reggie, is submi tted with relev ant clini elizabeth findi ngs and histo ry, and when the Pap resul t is evalu ated along with histo avinash and curre nt clini elizabeth infor matio n. Not Available [address] [address] , [place], [address], 05/04/2023 11:53:59 05/01/2005/04/2023 HPV MRNA E6/E7 HPV MRNA E6/E7 Not Detect ed not detect ed normal Metho dolog y: Trans cript ion-M ediat ed Ampli ficat ion This assay detec ts E6/E7 viral messe nger RNA (mRNA ) from 14 high- risk HPV types (16,1 8,31, 33,35 ,39,4 5,51, 52,56 ,58,5 9,66, 68). Cervi elizabeth sourc es are requi red for HPV testi ng. If a vagin al sourc e from a patie nt who has had a total hyste recto my with remov al of cervi x was submi tted, pleas e conta ct the testi ng labor atory for alter nativ e testi ng optio ns. For addit ional infor praful molina e refer to http: //[facility] thee gil.que stdia gnost ics.c om/fa q/FAQ 129v1 (This link if provi ded for infor vaibhav gil/ educa rachele l purpo ses only. ) Not Available [address], [address], 05/04/2023 11:54:00 08/28/19 25 08/29/2024 HPV HIGH RISK HPV high risk Negati ve negati ve normal The HPV High Risk assay is inten ded for use as co-te sting with cytol ogy and not as a subst itute for regul ar cervi elizabeth cytol ogy scree mario. This assay is not inten ded for use as a scree mario devic e for women under age 30 with michell l cervi elizabeth cytol ogy. Not Available [address], [address], 08/30/2024 10:00:10 08/28/19 25 09/02/2024 THINP REP TIS PAP clinical information: normal None given Not Available [facility] [address] [place], [address], 09/02/2024 11:23:57 08/28/19 25 09/02/2024 THINP REP TIS PAP LMP: normal NONE GIVEN Not Available [facility] [address], [address], 09/02/2024 11:23:57 08/28/19 25 09/02/2024 THINP REP TIS PAP prev. Pap: normal NONE GIVEN Not Available [facility] [address] [place], [address], 09/02/2024 11:23:57 08/28/19 25 09/02/2024 THINP REP TIS PAP prev. BX: normal NONE GIVEN Not Available [facility] [address] [place], [address], 09/02/2024 11:23:57 08/28/19 25 09/02/2024 THINP REP TIS PAP source: normal Cervi x Not Available [address] [address] [place], [address], 09/02/2024 11:23:57 08/28/19 25 09/02/2024 THINP REP TIS PAP statement of adequacy: normal SATIS FACTO RY FOR EVALU ATION Age and/o r menst rual statu s not provi ded Not Available [address], [address], 09/02/2024 11:23:57 08/28/19 25 09/02/2024 THINP REP TIS PAP interpretati on/result: Cytol ogy Resul ts: Negat iesha for intra epith elial lesio n or rosario schultz . Atrop shwetha lucio rn; predo bryn montenegro parab ramez cells Not Available [facility] [address] [place], [address], 09/02/2024 11:23:57 08/28/19 25 09/02/2024 THINP REP TIS PAP comment: normal This Pap test has been evalu ated with compu ter kiana sunshine techn ology . Not Available [address], [address], 09/02/2024 11:23:57 08/28/19 25 09/02/2024 THINP REP TIS PAP cytotechnolo gist: normal DONOVAN, CT( CP) CT Scree mario locat ion: [id number] [place] [address] Not Available [id number] [place], [address], 09/02/2024 11:23:57 08/28/19 25 09/02/2024 THINP REP TIS PAP comment EXPLA NATOR Y NOTE: The Pap is a scree mario test for cervi elizabeth cance r. It is not a diagn ostic test and is subje ct to false negat iesha and false posit iesha resul ts. It is most relia ble when a satis facto ry sampl e, regul alex obtai reggie, is submi tted with relev ant clini elizabeth findi ngs and histo ry, and when the Pap resul t is evalu ated along with histo avinash and curre nt clini elizabeth infor matio n. Not Available [facility] [address] [place], [address], 09/02/2024 11:23:57 08/28/19 25 08/28/2024 BRACA NALYS IS AND MYRIS K / NOTE 2 TESTS bracanalysis and myrisk / note 2 tests Signif icant Clinic al Histor y Findin g See PDF for compl ete resul ts. BREAS T CANCE R RISKS CORE( R): REMAI MARIO LIFET PUMA RISK 37.4% [facility] CY SIS: BASED ON THE [facility] PROVI DED, MODIF IED MEDIC AL MANAG EMENT GUIDE LINES IDENT IFIED VARIA NT(S) OF UNCER TAIN SIGNI FICAN CE (VUS) IDENT IFIED Not Available [facility] [address], [place], [address], 09/09/2024 13:30:07 04/17/20 22 MAMMO , scree mario, digit al, bilat eral No observ ation record ed. [email or web address] Not Available 2021 11:56:19 11/09/19 23 11/02/2022 MRI, breas t, bilat eral, w/wo contr ast No observ ation record ed. [email or web address] [place] [address] Imaging [address], [place], [address], 11/13/2022 17:33:42 06/29/2006/27/2023 MAMMO , scree mario, bilat eral No observ ation record ed. [facility] [address] [facility] [address], [place], [address], 07/02/2023 11:53:44 06/29/20 23 06/27/2023 MAMMO , diagn ostic , bilat eral No observ ation record ed. [facility] [address] [facility] [address], [place], [address], 07/02/2023 11:54:17 06/29/20 23 06/27/2023 MAMMO , diagn ostic , bilat eral No observ ation record ed. [id number] [facility] [address], [place], [address], 07/02/2023 11:54:42 03/06/20 24 02/08/2024 MRI, breas t, bilat eral, w/wo contr ast No observ ation record ed. [address] [facility] [address], [place], [address], 03/11/2024 18:39:09 09/11/19 25 09/11/2024 MAMMO , scree mario, digit al, bilat eral No observ ation record ed. [address] (Mammography) [address], [place], [address], 10/02/2024 14:39:16 Result Notes None recorded. Problems Name Problem SNOMED Code Status Onset Date Resolution Date Notes Provider Name and Address Organization Details Recorded Time Venereal disease screenin g Completed 201307/26/2014 Screenin g for STDs; Progress : Stable Added By: Blanco Thomas Add to Current Problems : NO ProblemS tatus: Resolve Not Available [employer] 21:04:02 Pregnanc y detectio n examinat ion Completed [...] Start Date : 12/03/19 14 Not Available [facility] 2 21:04:02 Leukorrh ea [id number] Completed 201309/11/2014 Vaginal Discharg e; Location : None Progress : Stable Added By: Terese Madrigal Add to Current Problems : NO ProblemS tatus: Resolve Not Available [facility] 2 21:04:05 Antenata l screenin g Completed 201309/11/2014 Antenata l screenin g; unspecif ied; Location : None Added By: Sarmad Dewitt Add to Current Problems : NO ProblemS tatus: Resolve Antenata l screenin g; unspecif ied; Location : None Added By: Terese Madrigal Add to Current Problems : NO ProblemS tatus: Resolve; Start Date : 05/11/20 14 Not Available [facility] 2 21:04:00 Multigra edison of advanced maternal age [id number] Completed 201308/12/2014 Advanced Maternal Age, multigra edison; [...] Start Date : 01/13/20 14 Not Available [facility] 2 21:03:54 Excessiv e growth affectin g manageme nt of mother [id number] Completed 201308/12/2014 Large for dates; Location : [...] Start Date : 06/02/20 14 Not Available [employer] 2 21:04:05 Routine antenata l care Completed 201302/12/2015 Pregnanc [...] Start Date : 02/17/20 14 Not Available [facility] 2 21:04:09 Postpart um care Completed 201402/12/2015 Visit for routine postpart um follow-u p; Location : None Progress : Stable Added By: Kirsty Little Add to Current Problems : YES ProblemS tatus: Resolve Not Available [facility] 2 21:04:02 Pregnanc y test negative [id number] Completed 201412/25/2014 Pregnanc y examinat ion or test, negative result; Progress : Stable Added By: Roya Helton Add to Current Problems : NO ProblemS tatus: Resolve Not Available [facility] 2 21:04:10 Insertio n of intraute rine contrace ptive device done [id number] 9109 Completed 201402/12/2015 Encounte r for insertio n of intraute rine contrace ptive device; Location : None Severity : Moderate Progress : Stable Added By: Roya Helton Add to Current Problems : YES ProblemS tatus: Resolve Not Available [facility] 1 04:22:29 IUD check [id number] Completed 201402/12/2015 Intraute rine contrace ptive device (IUD) follow up; Location : None Severity : Moderate Progress : Stable Added By: Fernanda Baxter Add to Current Problems : YES ProblemS tatus: Resolve Not Available [facility] 1 04:22:29 Family history of breast cancer [id number] Completed 201405/07/2019 Family history of breast cancer; Progress : Stable Added By: Marisa Max Add to Current Problems : NO ProblemS tatus: Resolve Family history of malignan t neoplasm of breast; Progress : Stable Added By: Marisa Max Add to Current Problems : NO ProblemS tatus: Resolve Not Available [facility] 2 21:04:05 Contrace ptive usage NOS Completed 201404/13/2015 Initiati on of other contrace ptive measures ; Location : None Severity : Moderate Progress : Stable Added By: Isa Santiago Add to Current Problems : NO ProblemS tatus: Resolve Not Available [facility] 1 04:22:26 Removal of intraute rine contrace ptive device done [id number] 9105 Completed 201402/12/2015 Removal of IUD; Location : None Severity : Moderate Progress : Stable Added By: Kirsty Little Add to Current Problems : YES ProblemS tatus: Resolve Not Available [facility] 1 04:22:27 Family history of malignan t neoplasm of breast in first degree relative [id number] Active 2014 Family history of breast cancer; Location : None Progress : Stable Added By: Marisa Max Add to Current Problems : YES ProblemS tatus: Current Not Available [facility] 2 21:03:55 Clinical finding Completed 201410/04/2015 Encounte r for surveill ance of injectab le contrace ptive; Progress : Stable Added By: Robyn Mackey Add to Current Problems : NO ProblemS tatus: Resolve Not Available [facility] 2 21:04:09 Injectio n given 258337627 Completed 201410/04/2015 Follow-u p visit for Depo Provera injectio n; Severity : Moderate Progress : Stable Added By: Robyn Mackey Add to Current Problems : NO ProblemS tatus: Resolve Not Available [facility] 1 04:22:27 Family planning surveill ance Completed 201410/04/2015 Follow-u p visit for Depo Provera injectio n; Location : None Progress : Stable Added By: Robyn Mackey Add to Current Problems : YES ProblemS tatus: Resolve Not Available [facility] 2 21:04:10 Uses contrace ption [id number] Completed 201501/06/2016 Visit for counseli ng and contrace ption advice; other; Severity : Moderate Progress : Stable Added By: Kirsty Little Add to Current Problems : NO ProblemS tatus: Resolve Not Available [facility] 1 04:22:22 Procedur e by method Completed 201501/06/2016 Encounte r for other general counseli ng and advice on contrace ption; Progress : Stable Added By: Kirsty Little Add to Current Problems : NO ProblemS tatus: Resolve Not Available [facility] 2 21:04:09 Counseli ng for elective steriliz ation done [id number] 9102 Completed 201501/06/2016 Office visit for steriliz ation; Severity : Moderate Progress : Stable Added By: Roya Helton Add to Current Problems : NO ProblemS tatus: Resolve Not Available [facility] 1 04:22:27 Procedur e Completed 201501/06/2016 Encounte r for other preproce dural examinat ion; Progress : Stable Added By: Roya Helton Add to Current Problems : NO ProblemS tatus: Resolve Not Available [facility] 2 21:03:54 Steriliz ation procedur e Completed 201501/06/2016 Encounte r for steriliz ation; Progress : Stable Added By: Roya Helton Add to Current Problems : NO ProblemS tatus: Resolve Not Available [facility] 2 21:04:05 Pre-surg abraham testing Completed 201501/06/2016 Encounte r for preproce dural laborato ry examinat ion; Progress : Stable Added By: Roya Helton Add to Current Problems : NO ProblemS tatus: Resolve Not Available [facility] 2 21:04:[address] Concept Completed 201501/06/2016 Encounte r for follow-u p examinat ion after complete d treatmen t for conditio ns other than malignan t neoplasm ; Progress : Stable Added By: Roya Helton Add to Current Problems : NO ProblemS tatus: Resolve Not Available [facility] 2 21:04:09 Surgical follow-u p - normal [id number] Completed 201501/06/2016 Follow-u p exam followin g surgery; Location : None Severity : Moderate Progress : Stable Added By: Roya Helton Add to Current Problems : YES ProblemS tatus: Resolve Follow-u p exam followin g surgery; Severity : Moderate Progress : Stable Added By: Jacinda Hagen Add to Current Problems : NO ProblemS tatus: Resolve; Start Date : 08/12/19 15 Not Available [facility] 1 04:22:33 Postoper ative follow-u p visit Completed 201501/06/2016 [...] Start Date : 08/12/19 15 Not Available [facility] 2 21:04:02 Breast neoplasm screenin g NOS Completed 201503/06/2016 [...] Start Date : 08/30/19 16 Not Available [facility] 1 04:22:27 Breast neoplasm screenin g status 093098716 Active 2015 Encounte r for other screenin g for malignan t neoplasm of breast; Severity : Moderate Progress : Stable Added By: Dinora Quinn Add to Current Problems : YES ProblemS tatus: Current Not Available [facility] 1 04:22:31 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 [id number] Active 2017 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 [...] Start Date : 02/13/20 15 Not Available [facility] 1 04:22:29 Sampling of vagina for Papanico laou smear Active 2018 Encounte r for gynecolo gical examinat ion (general ) (routine ) without abnormal findings ; Progress : Stable Added By: Randi Gomez Add to Current Problems : YES ProblemS tatus: Current Not Available [facility] 2 21:03:55 Screenin g for malignan t neoplasm of cervix Active 2018 Encounte r for screenin g for malignan t neoplasm of cervix; Progress : Stable Added By: Bebe Mackey Add to Current Problems : YES ProblemS tatus: Current Not Available [facility] 2 21:04:10 Screenin g mammogra phy Active 2019 Encounte [...] Start Date : 08/30/19 16 Not Available [facility] 2 21:04:07 Chronic fatigue syndrome 49063279 Active 2020 Chronic fatigue, unspecif ied; Progress : Stable Added By: Bebe Mackey Add to Current Problems : YES ProblemS tatus: Current Not Available [facility] 2 21:04:02 Eruption 118710221 Active 2020 Rash and other nonspeci fic skin eruption ; Progress : Stable Added By: Bebe Mackey Add to Current Problems : YES ProblemS tatus: Current Not Available [facility] 2 21:03:55 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; Progress : Stable Added By: Randi Gomez Add to Current Problems : YES ProblemS tatus: Current Not Available [facility] 2 21:04:10 Evaluati on finding Active 2020 Other abnormal and inconclu sive findings on diagnost ic imaging of breast; Progress : Stable Added By: Heidi Tovar Add to Current Problems : YES ProblemS tatus: Current Not Available [facility] 2 21:03:55 Notes:Office visit for steri lization (V25.2) ; [...] Name and Address Organization Details Recorded Time 09/11/19 Most Recent Mammogram completed MILES SHERMAN NP [address] [place], [address], [facility] 09/16/2024 22:07:41 08/28/19 25 Date of Last Pap Smear completed MILES SHERMAN NP [address] [place], [address], [facility] 08/30/2024 16:06:39 11/15/19 16 ligation of bilateral fallopian tubes completed [employer] [facility] 12/12/2021 08:15:00 reconstruction of nose completed [employer] [facility] 12/12/2021 08:14:42 section completed [employer] 12/12/2021 08:14:49 C Section completed [facility]be [facility] [facility] 05/01/2023 11:35:27 Imaging Results None recorded. Procedure Notes None recorded. Medical Equipment None Reported. Allergies Allergen ID Allergen Name Allergen Category Reaction Reaction Severity Criticality Documentation Date Start Date Code Code System Note Provider Name and Address Organization Details Recorded Time 498984 house dust allergeni c extract environme nt,medica tion Not available Not available Not available 08/28/2024 41539 9 RxNorm Miles rodriguez, [facility] 11:18:58 497488 cat dander environme nt Not available Not available Not available 08/28/2024 Miles Erickson [facility], [facility] 11:18:58 Medications Name Sig Start Date Stop Date Status Note LastModified by Organization Details LastModified Time Colace 100 mg capsule 1 PO BID PRN for constipa tion 08/12 completed Colace 100mg Capsules RxNorm: 6141966 Allow Substitu tion: True Refill Denied: No [...] TID 02/16 completed Reglan 10mg Tablet RxNorm: 473096 Allow Substitu tion: True Refill Denied: No Not Available Not Available Not Available triamcino lone acetonide 0.1 % topical cream APPLY THIN LAYER TOPICALL Y TO THE AFFECTED AREA TWICE DAILY active Not Available Not Available No t Available Zantac 150 mg tablet Take 1 tablet(s ) by mouth bid 08/12 completed Zantac 150mg Tablet RxNorm: 359604 Allow Substitu tion: True Refill Denied: No Refill DateOccu rred: 05/11/20 14 Not Available Not Available Not Available Vitamin tablet 02/12 completed Multivit marley Allow Substitu tion: True Refill Denied: No Refill DateOccu rred: 10/25/19 14 Not Available Not Available Not Available Zofran 8 mg tablet 1/2 tab po q 6 hrs PRN 01/11 completed Zofran 8mg Tablet RxNorm: 831793 Allow Substitu tion: True Refill Denied: No For Problem: Pregnanc y examinat ion or test, pregnanc y unconfir med Not Available Not Available Not Available Depo-Prov era 150 mg/mL intramusc ular suspensio n 1 injectio n IM q3mos. 01/09 completed Depo-Pro vera 150mg/1m l Injectio n RxNorm: 3487920 Allow Substitu tion: True Refill Denied: No Not Available Not Available Not Available Zoloft 50 mg tablet Take 1 tablet(s ) by mouth daily 02/12 completed Zoloft 50mg Tablet RxNorm: 785301 Allow Substitu tion: True Refill Denied: No Not Available Not Available Not Available ferrous sulfate 325 mg (65 mg iron) tablet Take 1 tab PO daily 08/12 completed Ferrous Sulfate 325mg Tablets RxNorm: 383491 Allow Substitu tion: True Refill Denied: No [...] bedtime 10/11 completed Vistaril 25mg Capsules RxNorm: 116431 Allow Substitu tion: True Refill Denied: No [...] 02/19 completed Fioricet 50mg/325 mg/40mg Tablet RxNorm: 193379 Allow Substitu tion: True Refill Denied: No [...] completed Crestor 10 mg oral tablet RxNorm: 895474 Allow Substitu tion: False Refill Denied: No Refill DateOccu rred: 05/07/20 Edited by: Dinora Mcgill ) on 05/07/20 Stopped by: Dinora Mcgill ) on Not Available Not Available Not Available Zoloft Take 1 tablet(s ) by mouth daily 02/12 completed Zoloft 25mg Tablet RxNorm: 085336 Allow Substitu tion: True Refill Denied: No Refill DateOccu rred: 10/25/19 14 Not Available Not Available Not Available metronida zole active Not Available Not Available Not Available folic acid 11/30 completed folic acid RxNorm: 9545721 Allow Substitu tion: False Refill Denied: No Refill DateOccu rred: 05/07/20 Edited by: Randi Thomas ) on 12/01/19 Stopped by: Randi Thomas ) on 12/01/19 Not Available Not Available Not Available biotin active Not Available Not Availa ble Not Available Vitamin D active Not Available Not Oxana ilable Not Available Phenergan Take 1 tablet(s ) by mouth q 6 hr PRN 02/02 completed Phenerga n 25mg Tablet RxNorm: 754556 Allow Substitu tion: True Refill Denied: No Not Available Not Available Not Available doxycycli ne hyclate 05/01 completed Not Available Not Available Not Available Depo-Prov era 12/06 completed Depo-Pro vera RxNorm: 2226578 Allow Substitu tion: True Refill Denied: No Refill DateOccu rred: 10/04/19 16 Not Available Not Available Not Available [facility]30 [facility] Allow Substitu tion: False Refill Denied: No [...] Refill DateOccu rred: 01/09/20 18 Edited by: Dinroa Mcgill ) on 05/07/20 19 Stopped by: [...] index (BMI) Body weight Body temperature Systolic And Diastolic Provider Name and Address Organization Details Last Updated DateTime 08/28/2024 160.02 cm 25.3 kg/m2 27203.2 7 g 97.8 [degF] 110/66 mm[Hg] Miles Sommersluanne [facility] [employer] [facility] 11:34:16 Date Recorded Body height Body mass index (BMI) Body weight Systolic And Diastolic Provider Name and Address Organization Details Last Updated DateTime 12/12/2021 162.56 cm 23 kg/m2 18731.38 g 110/60 mm[Hg] Crystal Browne [facility] [employer] [facility] 12/12/2021 11:55:31 Date Recorded Body height Body mass index (BMI) Body weight Body temperature Systolic And Diastolic Provider Name and Address Organization Details Last Updated DateTime 05/01/2023 160.02 cm 23.5 kg/m2 59200.3 5 g 97.9 [degF] 112/66 mm[Hg] Bebe Owusu [facility] [employer] [facility] 11:51:26 Social History Question Answer Notes LastModified by Organizat [employer] Details LastModified Time Tobacco Smoking Status Never Smoker Bebe Owusu jennifer, [facility] [employer] [facility] 05/01/2023 11:35:27 Are You Blind Or Do You Have Difficulty Seeing? No Information not available 08/28/2024 Are You Deaf Or Do You Have Serious Difficulty Hearing? No Information not available 08/28/2024 What Type Of Diet Are You Following? CARBOHYDRATE Information not available 05/01/2023 How Many Children Do You Have? 2 Information not available 08/28/2024 Are There Any Occupational Health Risks Where You Work? No Information not available 08/28/2024 What Is Your Relationship Status? Information not available 08/28/2024 Are You Sexually Active? No Information not available 08/28/2024 Sex: Unknown Functional Status Question Answer Note LastModified by Organizat ion Details LastModified Time Do you use any illicit or recreational drugs? No Information not available 08/28/2024 What is your level of alcohol consumption? None Information not available 05/01/2023 Are you currently employed? Yes Information not available 08/28/2024 Do you or have you ever used e-cigarettes or vape? Never used electronic cigarettes Information not available 05/01/2023 What is your exercise level? Occasional Information not available 05/01/2023 Mental Status None recorded. Family History Relationship Description Onset Age of this Age Resolved Age Notes LastModified by Organization Details LastModified Time Mother Malignant neoplasm of breast Not available 04/07 11:35:26 Mother Hypercholest erolemia Not available 04/07 11:35:26 Maternal Aunt Malignant neoplasm of breast x2 [id number] Not available 08/28 11:16:09 Unspecified Relation Malignant neoplasm of breast Not available 04/07 11:35:26 Father Hypercholest erolemia Not available 04/07 11:35:26 Father Myocardial infarction Not available 11:35:26 Father Malignant neoplastic disease Not available 04/07 11:35:26 Father Heart disease Not available 04/07 11:35:26 Medical History Condition Response Other Cancer N High Blood Pressure N Colon Cancer N Cytomegalovirus N Hyperthyroidism N MRSA N Breast Cancer N Herpes (HSV) N Blood Transfusion N Lung Cancer N Depression N Hypothyroidism N Incontinence N Panic Attacks N Neurological Disorder N Deep Vein Thrombosis N Anxiety Disorder N Autoimmune disease N Arthritis N Tuberculosis/Positive PPD N Shingles N Polycystic Ovarian Syndrome N Cervical Cancer N Hematuria N Chlamydia N Stroke N Varicosities N Seasonal allergies Y Crohn's Disease N Alzheimer's/Dementia N COPD/Emphysema N Endometriosis N HPV/Genital Warts N IBS (Irritable Bowel Syndrome) N History of Abnormal Pap N High Cholesterol N Liver Disease N Kidney Infection N Fibromyalgia N Ulcer N Kidney Disease N HIV N Gallbladder disease N Sickle Cell Disease/Trait N Von Willebrand disease N ADD/ADHD N Eating Disorder N Anemia N Diabetes Mellitus (non-insulin dependent ) N Multiple Sclerosis N Ovarian Problems N Gonorrhea N Frequent Urinary Tract infections N Osteopenia N Headaches/migraines N GERD (reflux) N Ovarian Cancer N Diabetes (insulin dependent) N Seizures/Epilepsy N Fibroids N Asthma N Heart Attack N Lupus N Endometrial Cancer N Rubella [...] of Flow (days) 3 Most Recent Mammogram 09/11/2024 Current Control Method Tubal Ligat ion Age [...] Diagnosis SNOMED-CT Code Diagnosis ICD10 Code Diagnosis IMO Codes Diagnosis Note [id number] Annie Martinez CNM [facility] [address] [place] [address] 12/12/2021 11:22:29 12/12/2021 15:04:57 Gynecologic examination 03658849 Z01.419 Screening for malignant neoplasm of breast 952709702 Z12.39 Family his tory of breast cancer 251930643 Z80.3 Breast lump 49982066 N63 .10 [id number] Annie Martinez CNM [facility] [address] [place] [address] 05/01/2023 11:34:31 05/02/2023 14:55:22 Gynecologic examination 28087593 Z01.419 Screening for malignant neoplasm of cervix 364072633 Z12.4 Screening for malignant neoplasm of breast 879588895 Z12.31 Depression screening 171 319444 Z13.31 [id number] MILES SHERMAN NP [facility] [address] [place] [address] 08/28/2024 11:15:55 08/28/2024 12:44:41 Gynecologic examination 84178007 Z01.419 Patient is an establishe d patient who presents for a gynecologi elizabeth Annual Exam. The patient denies any changes in her medical history. The patient denies any changes in her family medical history. 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 Reviewed recommenda tion to have imaging done at same facility if possible as previous screenings . Pt states understand ing of POC. Screening colonoscopy 44 8249002 Z12.11 Health Concerns Section Related Observation LastModified by Organization Detai ls LastModified Time None Recorded Concern Status LastModified by Organization Details LastModified Time None Recorded Advance Directives Directive None Recorded Payers Insurance Date Sequence Insurance Name Policy Number Policy Rice Covered Member ID Rice Member ID Guarantor Name 05/05/2025 1 [facility] (MEDICARE REPLACEMENT/AD VANTAGE - HMO) Clementina Ramirezmley [id number] Clementina Vaca 05/05/2025 1 [facility] - DOS ON OR AFTER 21 (MEDICAID REPLACEMENT - HMO) Clementina Joiner [place] [id number] Clementina Vaca Notes Date Note Type Note Provider Name and Address Organization Details Recorded Time 2 text/html Annual GYNReported by PatientHistoryFor history, patient reportsno gynecologic complaints.Genitourinary symptomsFor menstrual cycle, patient reportsnormal menses. For urinary symptoms, patient reportsno hematuriaandno incontinence. For vulva, patient reportsno genital lesion. For vagina, patient reportsnormal vaginal discharge.Breast symptomsFor breast, patient reportsno breast pain,no breast lump, andno nipple discharge.Endocrine symptomsFor sexual complaints, patient reportsno sexual complaints,no pain during intercourse, andnormal libido. For menopausal symptoms, patient reportsno menopausal symptomsandnormal vaginal lubrication.Psychological symptomsFor psychological symptoms, patient reportsno depression,no anxiety, andno pmdd.Preventative measuresFor preventive measures, patient reportsencourage self breast examinationandencourage regular exercise. Needs order for Bilateral Breast MRI for family hx of breast cancer Annie Martinez, [facility] [address] [facility], [place], [address], [facility] 12/12/2021 12:28:42 3 text/html Annual GYNReported by PatientHistoryFor history, patient reportsno gynecologic complaints.Genitourinary symptomsFor menstrual cycle, patient reportsnormal menses. For urinary symptoms, patient reportsno hematuriaandno incontinence. For vulva, patient reportsno genital lesion. For vagina, patient reportsnormal vaginal discharge.Breast symptomsFor breast, patient reportsno breast pain,no breast lump, andno nipple discharge.ContraceptionFor current contraception, patient reportstubal ligation.Endocrine symptomsFor menopausal symptoms, patient reportshot flashesbut reportsnormal vaginal lubrication(insomnia not related to night sweats, irritability, decreased sex drive). For sexual complaints, patient reportsno sexual complaints,no pain during intercourse, andnormal libido.Psychological symptomsFor psychological symptoms, patient reportsno depression,no anxiety, andno pmdd.Preventative measuresFor preventive measures, patient reportsencourage self breast examination,encourage regular exercise,encourage regular mammograms starting age 40, andneeds to schedule mammogram.ROS as noted in the HPI Annie Martinez CNM [address] [place], [address], [facility] [employer] 05/01/2023 15:29:18 5 text/html Annual GYNReported by PatientHistoryFor history, patient reportsno gynecologic complaintsandno change in interval history.Genitourinary symptomsFor menstrual cycle, patient reportsnormal menses. For urinary symptoms, patient reportsno hematuriaandno incontinence. For vulva, patient reportsno genital lesion. For vagina, patient reportsnormal vaginal discharge.Breast symptomsFor breast, patient reportsno breast pain,no breast lump, andno nipple discharge.ContraceptionFor current contraception, patient reportssatisfied with current contraceptionandtubal ligation.Endocrine symptomsFor menopausal symptoms, patient reportshot flashesandinsomnia due to night sweatsbut reportsnormal vaginal lubrication. For sexual complaints, patient reportsno sexual complaints,no pain during intercourse, andnormal libido.Psychological symptomsFor psychological symptoms, patient reportsno depression,no anxiety, andno pmdd.ROS as noted in the HPI MILES SHERMAN NP [address] [place], [address], [facility] [employer] 08/28/2024 14:36:56 OBGyn Episode Ob Episode Information Episode Created Date Number of Fetuses Patient Bloodtype Patient rh Status Prepregnancy Weight lbs Domestic Partner Domestic Partner Phone Father Name Director Of Billing Status 10/21/19 22 1 CLOSED Fetus Data First Name Last Name Admitted to NICU Weight (g) Sex Living Outcome Pediatric Complications Fetus ID Race Codes Race Delivery Type 3628.73 6 [id number] Noe Calculation Initial Noe Date Initial Exam [...] Domestic Partner Domestic Partner Phone Father Name Director Of Billing Status 10/21/19 22 1 CLOSED Fetus Data First Name Last Name Admitted to NICU Weight (g) Sex Living Outcome Pediatric Complications Fetus ID Race Codes Race Delivery Type 4082.32 8 [id number] Noe Calculation Initial Noe Date Initial Exam [...]
== END 2025-06-04 09:55 | disposition home or self-care (01) ==
PROVIDERS: PCP Internal Medicine
DX: N63.12 Unspecified lump in the right breast, upper inner quadrant (principal); N63.20 Unspecified lump in the left breast, unspecified quadrant; R92.8 Other abnormal and inconclusive findings on diagnostic imaging of breast
CPT/HCPCS: 77049; A9577; C8908

== ENCOUNTER 2025-06-29 09:06 | Outpatient (CLI) | payer OTHER, SELFPAY ==
[2025-06-29 09:45] LABS: Strep Group A RT-PCR NOT DETECTED (Negative)
== END 2025-06-29 09:07 | disposition home or self-care (01) ==
PROVIDERS: PCP Internal Medicine; Visit Provider Nurse Practitioner Family
DX: J02.9 Acute pharyngitis, unspecified (principal)
CPT/HCPCS: 87651